=== PATIENT | female | born 1995 | race Two or more races ===

== ENCOUNTER 2016-06-29 12:43 | Emergency (ER) | payer MEDICAID, OTHER ==
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
[2016-06-29 13:18] VITALS: BP 133/82
--- NOTE | 2016-06-29 15:05 | ER Document Report ---
ED General - General Chief Complaint: Headache Stated Complaint: VISION PROBLEM Information source: Patient, Friend Notes: This 20-year-old female just recently moved to the area who presents today stating she's had some blurring vision when she tries to read tingling in hands and feet face around her lips occasionally she feels a sense of impending doom. She states that up until a proximally 5 days ago she had been taking many illicit drugs most notably ecstasy Valium sleeping pills and muscle relaxers. She states that she did come here to get herself cleaned up states she has no chest pain or shortness of breath no exertional chest pain no exertional shortness of breath no diaphoresis no nausea no vomiting TRAVEL OUTSIDE OF THE [place] IN LAST 30 DAYS: No - Related Data Allergies/Adverse Reactions: No Known Allergies Allergy (Verified 06/29/16 13:15) Past Medical History - General Last Menstrual Period: 05/2016 - Social History Smoking Status: Current Every Day Smoker Cigarette use (# per day): Yes Chew tobacco use (# tins/day): No Frequency of alcohol use: None Drug Abuse: Marijuana Family History: Reviewed & Not Pertinent Patient has suicidal ideation: No Patient has homicidal ideation: No Neurological Medical History: Reports: Hx Migraine Renal/ Medical History: Denies: Hx Peritoneal Dialysis Past Surgical History: Reports: Hx Oral Surgery - wisdom teeth, Hx Orthopedic Surgery - Immunizations Hx Diphtheria, Pertussis, Tetanus Vaccination: Yes Review of Systems - Review of Systems Constitutional: No symptoms reported EENT: No symptoms reported Cardiovascular: No symptoms reported Respiratory: No symptoms reported Gastrointestinal: No symptoms reported Genitourinary: No symptoms reported Female Genitourinary: No symptoms reported Musculoskeletal: No symptoms reported Skin: No symptoms reported Hematologic/Lymphatic: No symptoms reported Neurological/Psychological: No symptoms reported Physical Exam - Vital signs Vitals: Temp Pulse Resp BP Pulse Ox 98.9 F 93 16 133/82 H 99 06/29/16 13:07 06/29/16 13:07 06/29/16 13:07 06/29/16 13:07 06/29/16 13:07 Interpretation: Normal - General General appearance: Appears well, Alert - HEENT Head: Normocephalic, Atraumatic Eyes: Normal Pupils: PERRL Visual acuity- Right eye: 20/20 Visual acuity- Left eye: 20/25 Visual acuity- Both eyes: 20/25 Corrective lenses worn: Yes - Respiratory Respiratory status: No respiratory distress Chest status: Nontender Breath sounds: Normal Chest palpation: Normal - Cardiovascular Rhythm: Regular Heart sounds: Normal auscultation Murmur: No - Abdominal Inspection: Normal Distension: No distension Bowel sounds: Normal Tenderness: Nontender Organomegaly: No organomegaly - Back Back: Normal, Nontender - Extremities General upper extremity: Normal inspection, Nontender, Normal color, Normal ROM , Normal temperature General lower extremity: Normal inspection, Nontender, Normal color, Normal ROM , Normal temperature, Normal weight bearing. No: Jc's sign - Neurological Neuro grossly intact: Yes Cognition: Normal Orientation: AAOx4 Marv Coma Scale Eye Opening: Spontaneous Marv Coma Scale Verbal: Oriented Marv Coma Scale Motor: Obeys Commands Marv Coma Scale Total: 15 Speech: Normal Motor strength normal: LUE, RUE, LLE, RLE Sensory: Normal - Psychological Associated symptoms: Normal affect, Normal mood - Skin Skin Temperature: Warm Skin Moisture: Dry Skin Color: Normal Course - Vital Signs Vital signs: Temp Pulse Resp BP Pulse Ox 98.9 F 93 16 133/82 H 99 06/29/16 13:07 06/29/16 13:07 06/29/16 13:07 06/29/16 13:07 06/29/16 13:07 - Transfer of Care Notes: 06/29/16 15:01 Patient was evaluated by me and an order was placed for visual acuities vital signs stable 133/8216 respirations and a percent saturation pulse of 93 temperature of 98.9 patient eloped prior to having the visual acuities done however her care has been provided here in the department. Discharge - Discharge Clinical Impression: Substance abuse Disposition: HOME, SELF-CARE Additional Instructions: CHRONIC ALCOHOLISM and ALCOHOL ABUSE: Your evaluation reveals evidence of chronic alcoholism, an addiction to alcohol. The tendency to alcoholism may be inherited. Chronic use of alcohol weakens muscles, causes fatty deposits in the liver , damages the stomach, makes you more prone to infections, and can cause defects in unborn children. In the long run, brain atrophy and cirrhosis of the liver result. You are also at greater risk for certain types of cancer, such as cancer of the mouth, throat, stomach, and liver. Counselling services are available to help you. In-hospital treatment programs often help. Support groups such as Alcoholics Anonymous can be very useful in beating this addiction. Your physician can make a referral for you. As alcoholics often are prone to other addictions, you should discuss your use of any other medications with the doctor. ALCOHOL WITHDRAWAL: Your symptoms are caused by alcohol withdrawal. After a period of frequent drinking, the brain and body are changed by the alcohol. When you quit or reduce your drinking, the nervous system becomes unstable. Withdrawal symptoms can start a few hours after your last drink, but sometimes don't begin until a couple of days later. Symptoms can include shakiness, sweating, insomnia, nausea , vomiting, fearfulness, hallucinations, and seizures. In addition to the acute effects of alcohol withdrawal, we often have to deal with the medical effects of alcoholism. These problems often include dehydration, stomach irritation, intestinal bleeding, low blood sugar, liver disease, and pancreas inflammation. Treatment for alcohol withdrawal includes mild sedatives, vitamins, and fluids. You need to be with someone who can help if symptoms become severe. Many patients can withdraw at home. Admission to the hospital or a detox facility may be necessary if withdrawal symptoms are severe and uncontrollable. Abstaining from alcohol is the only effective long-term treatment. If you start drinking again, you will not be able to control yourself after the first drink. Treatment programs are available. In addition, many alcoholics benefit from Alcoholics Anonymous or other support groups available through your counselor or confucianism excellence consultant. [facility] and ALA-TE[facility] are support groups for friends and family members of an alcoholic. Go to the emergency room if you develop persistent vomiting, severe abdominal pain, fever, shortness of breath, hallucinations, uncontrollable tremors, or seizures. NARCOTIC / OPIOD ABUSE: Narcotics and opiods are pain-relieving drugs that are often abused. They are addicting. Narcotics cause euphoria, but it often takes increasing amounts to "feel good" and avoid withdrawal symptoms. Overdose of narcotics causes small pupils, coma, and decreased breathing. It's a common cause of . Purity of street narcotics is unpredictable. Injection of narcotics is risky for abscesses, endocarditis (heart infection), pneumonia, and AIDS. Withdrawal from narcotics causes goose bumps, watery mouth, sweating, nasal congestion, muscle aches, abdominal cramps, vomiting, and diarrhea. There 's often restlessness and confusion. Treatment programs are available, but you must make the decision to quit. Medication (such as clonidine) can be prescribed to control the symptoms of withdrawal. AMPHETAMINE / METHAMPHETAMINE ABUSE: Amphetamines are addicting stimulants. Amphetamines overstimulate the nervous system and give a false feeling of power and mastery. These drugs may be obtained as prescription pills for weight loss, narcolepsy, or attention- deficit disorder. More often they're bought as an illegal street drug, methamphetamine (crank, crystal, speed). Using amphetamines repeatedly can lead to serious medical problems including malnutrition, severe depression, and paranoia. It can take increasing amounts to feel good. Eventually, there will be a "burn out." When you go off amphetamines there is a period of depression that may last for weeks or even months. High doses of amphetamines can cause seizures, confusion, hallucinations, delusions, high blood pressure, muscle damage, heart damage, or sudden . Many times these deadly complications occur even with "normal" doses. Injection of amphetamines is risky for developing abscesses, endocarditis ( heart infection), pneumonia, and AIDS. Withdrawal from amphetamines often causes anxiety, depression, and drug cravings. Some users become paranoid and psychotic. There may be cramps, nausea , and vomiting. Many treatment programs are available, but you must make the decision to quit. Medication can be prescribed to control the symptoms of amphetamine toxicity (beta blockers or benzodiazepines). Withdrawal symptoms may require tranquilizers. FOR THE OBSERVER: Observe the patient for the next 24 hours and call or go to the hospital if any of the following are noted: prolonged or repeated vomiting, difficulty in arousing, convulsions (seizures or fits), fever, persistent cough, breathing that is too slow or too rapid, or confused or bizarre behavior. If a counselling visit has been arranged, make sure the patient attends. Call the physician or poison control if you have questions. FOLLOW-UP CARE: If you have been referred to a physician for follow-up care, call the physician s office for an appointment as you were instructed or within the next two days. If you experience worsening or a significant change in your symptoms, notify the physician immediately or return to the Emergency Department at any time for re-evaluation.
== END 2016-06-29 15:03 | disposition left against medical advice (07) ==
LOC: ER 12:43
DX: F19.10 Other psychoactive substance abuse, uncomplicated (principal); R51 Headache; F17.210 Nicotine dependence, cigarettes, uncomplicated; H53.8 Other visual disturbances
CPT/HCPCS: 99281

== ENCOUNTER 2017-07-01 23:08 | Emergency (ER) | payer SELFPAY ==
[2017-07-01 23:46] LABS: ABSOLUTE EOSINOPHILS # (AUTO) 0.2 10^3/uL (0.0-0.6); ABSOLUTE MONOCYTES (AUTO) 0.5 10^3/uL (0.1-1.4); ABSOLUTE NEUT (AUTO) 5.4 10^3/uL (1.7-8.2); BASOPHILS % (AUTO) 0.5 % (0-2); EOSINOPHILS % (AUTO) 2.2 % (0-6); HEMATOCRIT 45.1 % (36.0-47.0); HEMOGLOBIN 15.4 g/dL (12.0-15.5); LYMPHOCYTES % (AUTO) 33.1 % (13-45); MEAN CORPUSCULAR HEMOGLOBIN 30.5 pg (27.0-33.4); MEAN CORPUSCULAR HGB CONC 34.2 g/dL (32.0-36.0); MEAN CORPUSCULAR VOLUME 89 fl (80-97); MONOCYTES % (AUTO) 5.2 % (3-13); PLATELET COUNT 272 10^3/uL (150-450); RED BLOOD COUNT 5.05 10^6/uL (3.72-5.28); RED CELL DISTRIBUTION WIDTH 12.6 % (11.5-14.0); TOTAL CELLS COUNTED % (AUTO) 100 %; WHITE BLOOD COUNT 9.1 10^3/uL (4.0-10.5)
[2017-07-02 00:01] LABS: ALANINE AMINOTRANSFERASE 36 U/L (9-52); ALKALINE PHOSPHATASE 73 U/L (38-126); ANION GAP 13 (5-19); ASPARTATE AMINO TRANSFERASE 23 U/L (14-36); BILIRUBIN,DIRECT 0.1 mg/dL (0.0-0.4); BILIRUBIN,TOTAL 0.6 mg/dL (0.2-1.3); BLOOD UREA NITROGEN 8 mg/dL (7-20); CARBON DIOXIDE 23 mmol/L (22-30); CHLORIDE 108 mmol/L (98-107); GLUCOSE 95 mg/dL (75-110); POTASSIUM 4.1 mmol/L (3.6-5.0); SODIUM 144.1 mmol/L (137-145); TOTAL PROTEIN 7.8 g/dL (6.3-8.2)
[2017-07-02 00:11] LABS: ACETAMINOPHEN < 10 ug/mL (10-30); ALCOHOL < 10 mg/dL (NONE DETECTED); SALICYLATE < 1.0 mg/dL (2.0-20.0)
--- NOTE | 2017-07-02 01:35 | ER Document Report ---
ED Psych Disorder / Suicide - General Mode of Arrival: Ambulatory Information source: Patient TRAVEL OUTSIDE OF THE [place] IN LAST 30 DAYS: No <GEOVANNY CARTWRIGHT - Last Filed: 07/02/17 03:09> <SOFÍA TRUONG - Last Filed: 07/02/17 05:36> - General Chief Complaint: Suicidal Ideation Stated Complaint: SUICIDAL ATTEMPT Time Seen by Provider: 07/01/17 23:31 Notes: Patient is a 21 year old female that presents to the emergency department today with complaints of suicidal ideation. Patient is very uncooperative with exam so history is limited. When asked what is wrong, the patient states "just stuff ". Patient states she cut her left arm today in an attempt to kill herself. Patient has 3 very superficial lacerations over her left forearm. (GEOVANNY CARTWRIGHT ) - Related Data Allergies/Adverse Reactions: No Known Allergies Allergy (Verified 08/08/16 07:43) Past Medical History - General Information source: Patient - Social History Smoking Status: Never Smoker Cigarette use (# per day): No Frequency of alcohol use: Social Drug Abuse: Cocaine, Marijuana, Prescription drugs Lives with: Family Family History: Reviewed & Not Pertinent, DM, Other - Gallbladder disease Patient has suicidal ideation: Yes Patient has homicidal ideation: No Neurological Medical History: Reports: Hx Migraine Psychiatric Medical History: Reports: Hx Anxiety, Hx Depression, Hx Post Traumatic Stress Disorder Past Surgical History: Reports: Hx Cholecystectomy, Hx Oral Surgery - wisdom teeth, Hx Orthopedic Surgery - Immunizations Immunizations up to date: Yes Hx Diphtheria, Pertussis, Tetanus Vaccination: Yes <GEOVANNY CARTWRIGHT - Last Filed: 07/02/17 03:09> Review of Systems - Review of Systems Constitutional: No symptoms reported EENT: No symptoms reported Cardiovascular: No symptoms reported Respiratory: No symptoms reported Gastrointestinal: No symptoms reported Genitourinary: No symptoms reported Female Genitourinary: No symptoms reported Musculoskeletal: No symptoms reported Skin: No symptoms reported Hematologic/Lymphatic: No symptoms reported Neurological/Psychological: See HPI, Suicidal ideation -: Yes All other systems reviewed and negative <GEOVANNY CARTWRIGHT - Last Filed: 07/02/17 03:09> Physical Exam <GEOVANNY CARTWRIGHT - Last Filed: 07/02/17 03:09> <SOFÍA TRUONG - Last Filed: 07/02/17 05:36> - Vital signs Vitals: Temp Pulse Resp BP Pulse Ox 98.5 F 67 16 140/101 H 97 07/01/17 23:28 07/01/17 23:28 07/01/17 23:28 07/01/17 23:28 07/01/17 23:28 - Notes Notes: Physical Exam: General: Alert, uncooperative. HEENT: Normocephalic. Atraumatic. PERRL. Extraocular movements intact. Oropharynx clear. Neck: Supple. Non-tender. Respiratory: No respiratory distress. Clear and equal breath sounds bilaterally. Cardiovascular: Regular rate and rhythm. Abdominal: Normal Inspection. Non-tender. No distension. Normal Bowel Sounds. Back: Non-tender. No deformity or step off. Extremities: Moves all four extremities. Upper extremities: Normal inspection. Normal ROM. Lower extremities: Normal inspection. No edema. Normal ROM. Neurological: Normal cognition. AAOx4. Normal speech. Psychological: Flat affect. Tearful. Skin: Superficial lacerations over left arm, bleeding controlled. (GEOVANNY CARTWRIGHT ) Course - Laboratory Result Diagrams: 07/01/17 23:34 07/01/17 23:34 <GEOVANNY CARTWRIGHT - Last Filed: 07/02/17 03:09> - Laboratory Result Diagrams: 07/01/17 23:34 07/01/17 23:34 <SOFÍA TRUONG - Last Filed: 07/02/17 05:36> - Re-evaluation Re-evalutation: 07/02/17 Patient is a 21-year-old female who presents with suicidal ideation and self- inflicted lacerations to her left forearm. Patient was initially tearful and fairly uncooperative with history. Medically she is stable and will be held for mental health evaluation due to her suicidal ideation. (SOFÍA TRUONG) - Vital Signs Vital signs: Temp Pulse Resp BP Pulse Ox 97.7 F 76 16 105/69 100 07/02/17 03:00 07/02/17 03:00 07/02/17 03:00 07/02/17 03:00 07/02/17 03:00 - Laboratory Laboratory results interpreted by me: 07/01/17 23:34 Chloride 108 H Salicylates < 1.0 L Acetaminophen < 10 L Discharge <GEOVANNY CARTWRIGHT - Last Filed: 07/02/17 03:09> <SOFÍA TRUONG - Last Filed: 07/02/17 05:36> - Discharge Clinical Impression: Suicidal ideation Condition: Stable Disposition: OTHER Scribe Attestation: 07/02/17 05:35 I personally performed the services described in the documentation, reviewed and edited the documentation which was dictated to the scribe in my presence, and it accurately records my words and actions. (SOFÍA TRUONG) Scribe Documentation - Scribe Written by Scribe:: Harrison Hernández, 07/02/2017 [id number] acting as scribe for :: Florentin <GEOVANNY CARTWRIGHT - Last Filed: 07/02/17 03:09>
[2017-07-02 07:51] LABS: APPEARANCE,URINE SLIGHTLY-CLOUDY; BILIRUBIN,URINE NEGATIVE (NEGATIVE); COLOR,URINE YELLOW; GLUCOSE, URINE NEGATIVE (NEGATIVE); KETONES,URINE NEGATIVE (NEGATIVE); LEUKOCYTE ESTERASE,URINE NEGATIVE (NEGATIVE); NITRITE,URINE NEGATIVE (NEGATIVE); PROTEIN,URINE 30 mg/dL (NEGATIVE); URINE SPECIFIC GRAVITY 1.028; UROBILINOGEN,URINE NEGATIVE mg/dL (<2.0)
--- NOTE | 2017-07-02 08:04 | EKG REPORT ---
SEVERITY:- NORMAL ECG - SINUS RHYTHM : Confirmed by: Min Avalos MD 02-Jul-2017 08:03:53
[2017-07-02 08:08] LABS: URINE AMPHETAMINES SCREEN NEGATIVE; URINE BARBITURATES SCREEN NEGATIVE; URINE BENZODIAZEPINES SCREEN NEGATIVE; URINE COCAINE SCREEN NEGATIVE; URINE MARIJUANA (THC) SCREEN UNCONFIRMED POSITIVE; URINE METHADONE SCREEN NEGATIVE; URINE PHENCYCLIDINE SCREEN NEGATIVE
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
[2017-07-02 11:00] VITALS: BP 114/63
== END 2017-07-02 12:14 | disposition other institution (70) ==
LOC: ER 23:08
DX: R45.851 Suicidal ideations (principal); S51.812A Laceration without foreign body of left forearm, initial encounter; X78.9XXA Intentional self-harm by unspecified sharp object, initial encounter
CPT/HCPCS: 36415; 80053; 80307; 81001; 84703; 85025; 93005; 93010; 99285

== ENCOUNTER 2017-12-16 22:26 | Emergency (ER) | payer SELFPAY ==
[2017-12-16] MEDS ORDERED: ONDANSETRON 4 MG TAB.RAPDIS PO ONE (23:27)
[2017-12-17 00:01] LABS: ABSOLUTE EOSINOPHILS # (AUTO) 0.1 10^3/uL (0.0-0.6); ABSOLUTE LYMPHOCYTES (AUTO) 3.3 10^3/uL (0.5-4.7); ABSOLUTE MONOCYTES (AUTO) 0.6 10^3/uL (0.1-1.4); BASOPHILS % (AUTO) 0.4 % (0-2); EOSINOPHILS % (AUTO) 0.7 % (0-6); HEMATOCRIT 39.4 % (36.0-47.0); HEMOGLOBIN 13.9 g/dL (12.0-15.5); MEAN CORPUSCULAR HGB CONC 35.2 g/dL (32.0-36.0); MEAN CORPUSCULAR VOLUME 91 fl (80-97); MONOCYTES % (AUTO) 5.6 % (3-13); PLATELET COUNT 278 10^3/uL (150-450); RED BLOOD COUNT 4.33 10^6/uL (3.72-5.28); RED CELL DISTRIBUTION WIDTH 12.4 % (11.5-14.0); SEGMENTED NEUTROPHILS % (AUTO) 63.3 % (42-78); TOTAL CELLS COUNTED % (AUTO) 100 %
[2017-12-17 00:05] LABS: APPEARANCE,URINE SLIGHTLY-CLOUDY; BILIRUBIN,URINE NEGATIVE (NEGATIVE); COLOR,URINE YELLOW; GLUCOSE, URINE NEGATIVE (NEGATIVE); KETONES,URINE TRACE mg/dL (NEGATIVE); LEUKOCYTE ESTERASE,URINE TRACE (NEGATIVE); NITRITE,URINE NEGATIVE (NEGATIVE); PROTEIN,URINE NEGATIVE (NEGATIVE); URINE SPECIFIC GRAVITY 1.024
[2017-12-17 00:14] LABS: ALANINE AMINOTRANSFERASE 25 U/L (9-52); ALBUMIN 4.5 g/dL (3.5-5.0); ALKALINE PHOSPHATASE 70 U/L (38-126); ANION GAP 14 (5-19); ASPARTATE AMINO TRANSFERASE 22 U/L (14-36); BILIRUBIN,DIRECT 0.2 mg/dL (0.0-0.4); BILIRUBIN,TOTAL 1.4 mg/dL (0.2-1.3); BLOOD UREA NITROGEN 9 mg/dL (7-20); CALCIUM 9.7 mg/dL (8.4-10.2); CARBON DIOXIDE 24 mmol/L (22-30); CHLORIDE 105 mmol/L (98-107); GLUCOSE 86 mg/dL (75-110); LIPASE 87.4 U/L (23-300); POTASSIUM 4.3 mmol/L (3.6-5.0); SODIUM 142.6 mmol/L (137-145); TOTAL PROTEIN 7.4 g/dL (6.3-8.2)
[2017-12-17] MEDS ORDERED: CEFTRIAXONE INJ 250 MG VIAL IM ONE (01:42)
[2017-12-17] MEDS ORDERED: LIDOCAINE 1% INJ-PF (10 MG/ML) 30 ML SDV INJ ONE (01:42)
[2017-12-17] MEDS ORDERED: DOXYCYCLINE HYCLATE 100 MG TABLET PO ONE (01:50)
[2017-12-17 01:52] LABS: BACTERIA (WET MOUNT) 4+ BACTERIA SEEN; EPITHELIALS (WET MOUNT) 3+ EPITHELIALS SEEN; RBCS (WET MOUNT) RARE RBCS SEEN; T.VAGINALIS (WET MOUNT) NO TRICHOMONAS SEEN; WBCS (WET MOUNT) 2+ WBCS SEEN; YEAST (WET MOUNT) NO YEAST SEEN
--- NOTE | 2017-12-17 01:55 | ER Document Report ---
ED GI/ - General Chief Complaint: Abdominal Pain Stated Complaint: POSSIBLE ALLERGIC REACTION Time Seen by Provider: 12/17/17 00:48 Mode of Arrival: Ambulatory Information source: Patient Notes: 22-year-old female presented to ED for complaint of abdominal pain nausea and vomiting. She states she had lower abdominal pain and cramping and pain in her back for the last couple days. She states her boyfriend was seen at the health department and told he had a STD and that she needed to come into the health department and be treated. She went to the health department and they gave her 2 blue pills and sent her home. She states when she got home she had vomiting and does not think she kept any of the pills down. She states they did not test her at the health department. She states she does not have the pain in her back anymore but she has cramping and nausea. She has received Zofran and blood test and urine were received before I examined the patient. The urine was not sent for GC and chlamydia. I will do swabs for GC and chlamydia and wet mount her for PID. TRAVEL OUTSIDE OF THE [place] IN LAST 30 DAYS: No - HPI Patient complains to provider of: Pelvic pain, Vaginal discharge Onset: Other - Several days Timing/Duration: Intermittent Quality of pain: Cramping Severity at maximum: Severe Severity in ED: Moderate Pain Level: 3 Location: Pelvis Vaginal bleeding (Compared to normal period): None Sexual history: Unprotected intercourse, STD exposure Associated symptoms: Vaginal discharge, Other - Pelvic pain Exacerbated by: Denies Relieved by: Denies Similar symptoms previously: Yes Recently seen / treated by doctor: Yes - Related Data Allergies/Adverse Reactions: No Known Allergies Allergy (Verified 08/08/16 07:43) Past Medical History - General Information source: Patient - Social History Smoking Status: Never Smoker Cigarette use (# per day): No Chew tobacco use (# tins/day): No Smoking Education Provided: No Frequency of alcohol use: Occasional Drug Abuse: Marijuana Lives with: Spouse/Significant other Family History: Reviewed & Not Pertinent, DM, Other - Gallbladder disease Patient has suicidal ideation: No Patient has homicidal ideation: No - Past Medical History Cardiac Medical History: Reports: None Pulmonary Medical History: Reports: None EENT Medical History: Reports: None Neurological Medical History: Reports: Hx Migraine Endocrine Medical History: Reports: None Renal/ Medical History: Reports: Hx Pelvic Inflammatory Disease Malignancy Medical History: Reports: None GI Medical History: Reports: None Musculoskeletal Medical History: Reports None Skin Medical History: Reports None Psychiatric Medical History: Reports: Hx Anxiety, Hx Depression, Hx Post Traumatic Stress Disorder Traumatic Medical History: Reports: None Infectious Medical History: Reports: None Past Surgical History: Reports: Hx Cholecystectomy, Hx Oral Surgery - wisdom teeth, Hx Orthopedic Surgery - Immunizations Immunizations up to date: Yes Hx Diphtheria, Pertussis, Tetanus Vaccination: Yes Review of Systems - Review of Systems Constitutional: No symptoms reported EENT: No symptoms reported Cardiovascular: No symptoms reported Respiratory: No symptoms reported Gastrointestinal: No symptoms reported Genitourinary: No symptoms reported Female Genitourinary: Vaginal discharge, Vaginal odor, Other - pelvic pain Musculoskeletal: No symptoms reported Skin: No symptoms reported Hematologic/Lymphatic: No symptoms reported Neurological/Psychological: No symptoms reported -: Yes All other systems reviewed and negative Physical Exam - Vital signs Vitals: Temp Pulse BP Pulse Ox 98.3 F 66 132/79 H 99 12/16/17 22:39 12/16/17 22:39 12/16/17 22:39 12/16/17 22:39 Interpretation: Normal - General General appearance: Appears well, Alert - HEENT Head: Normocephalic, Atraumatic Eyes: Normal Pupils: PERRL - Respiratory Respiratory status: No respiratory distress Chest status: Nontender Breath sounds: Normal Chest palpation: Normal - Cardiovascular Rhythm: Regular Heart sounds: Normal auscultation Murmur: No - Abdominal Inspection: Normal Distension: No distension Bowel sounds: Normal Tenderness: Tender - pelvic area Organomegaly: No organomegaly - Genitourinary External exam: Normal Notes: self swab for GC and chlamydia and wet mount completed. - Back Back: Normal, Nontender - Extremities General upper extremity: Normal inspection, Nontender, Normal color, Normal ROM , Normal temperature General lower extremity: Normal inspection, Nontender, Normal color, Normal ROM , Normal temperature, Normal weight bearing. No: Jc's sign - Neurological Neuro grossly intact: Yes Cognition: Normal Orientation: AAOx4 Marv Coma Scale Eye Opening: Spontaneous Marv Coma Scale Verbal: Oriented Marv Coma Scale Motor: Obeys Commands Marv Coma Scale Total: 15 Speech: Normal Motor strength normal: LUE, RUE, LLE, RLE Sensory: Normal - Psychological Associated symptoms: Normal affect, Normal mood - Skin Skin Temperature: Warm Skin Moisture: Dry Skin Color: Normal Course - Re-evaluation Re-evalutation: 12/17/17 02:30 Patient treated with Zofran, Rocephin, and doxycycline in the emergency room for her sinus symptoms of twice daily and her positive bacterial vaginosis test. She was instructed to call tomorrow for the results of her GC and chlamydia. Patient has been treated and instructed no sexual intercourse for at least 7 days. Patient verbalized understanding of instructions and agreement with treatment plan. - Vital Signs Vital signs: Temp Pulse Resp BP Pulse Ox 98.2 F 68 16 118/76 100 12/17/17 02:25 12/17/17 02:25 12/17/17 02:25 12/17/17 02:25 12/17/17 02:25 - Laboratory Result Diagrams: 12/16/17 23:40 12/16/17 23:40 Laboratory results interpreted by me: 12/16/17 12/16/17 12/16/17 23:40 23:40 23:40 WBC 11.0 H Total Bilirubin 1.4 H Urine Ketones TRACE H Urine Urobilinogen 4.0 H Ur Leukocyte Esterase TRACE H Discharge - Discharge Clinical Impression: Pelvic pain, PID (acute pelvic inflammatory disease), Bacterial vaginosis Condition: Stable Disposition: HOME, SELF-CARE Instructions: Family Physicians / Practices, [facility] Additional Instructions: PELVIC PAIN: There are many causes of pain in the pelvic area. The cause could be the tubes, ovaries, uterus, intestines, appendix, pelvic muscles and connective tissue, or the urinary tract. The cause of your pelvic pain is not clear. However, it seems safe to treat you outside the hospital. If the pain sounds like a temporary problem, we sometimes wait to see if it goes away. Other patients may need additional tests, such as pelvic ultrasound or cultures. Conditions may change. Call us or come back for reexamination if any problems occur, such as: (1) Pain that becomes more severe, steady, or becomes concentrated in one specific area. Also, pain that is more severe with movement or coughing. (2) Vomiting that persists or becomes more frequent. (3) Blood in the vomitus, urine, or bowel movements. Blood in the stool may have a tarry or black appearance. (4) Shaking chills or fever greater than 100 degrees. (5) The abdomen becomes more distended or swollen. (6) Bowel movements cease. (7) Heavy vaginal bleeding. PELVIC INFLAMMATORY DISEASE: You have been diagnosed as having pelvic inflammatory disease (PID). This is an infection of the fallopian tubes and surrounding areas of the pelvis. Symptoms are usually pelvic pain and discharge. The infection can do permanent damage to the tubes and ovaries. It should be taken very seriously. Treatment is antibiotics, which may be given by vein or by injection if the infection seems serious. It's important that you receive all recommended medication. Condoms help prevent spread of this infection to others. Because this infection is spread sexually, it's important that your sexual partner be checked before resuming sexual relations. If a culture shows gonorrhea or chlamydia organisms, the law requires that this be reported to the health department. Call the doctor or return at once if you develop increasing fever, rash, severe pelvic pain, vaginal bleeding (other than your period), or problems with your bladder or bowels. VAGINOSIS, BACTERIAL: Your exam shows you have bacterial vaginosis. This condition is due to an overgrowth of bacteria in the vagina. Symptoms may include vaginal itching or pain, a smelly discharge, and sometimes burning with urination. Normally this is not transmitted by sexual contact. Vaginosis can be treated with oral or topical antibiotics. Metronidazole ( Flagyl) pills are usually effective. Topical vaginal creams include Cleocin and Metro-Gel. You should avoid sexual contact until your symptoms are all better. Call the doctor if you develop pelvic pain, fever, or problems with urination, or if you don't improve as expected. CEPHALOSPORINS: An antibiotic of the cephalosporin class has been prescribed. This type of antibiotic covers a wide variety of infections, including those of the skin, lungs, middle ear, and urinary tract. This antibiotic is somewhat similar to the penicillin family. In rare cases , a person who is allergic to penicillin will also be allergic to this medication. If you have had a severe allergic reaction to penicillin, and have not taken this antibiotic since that time, notify your doctor. Antibiotics which cover many germs ("broad spectrum" antibiotics) are more likely to cause diarrhea or "yeast" infections. Women prone to vaginal yeast problems may suffer an attack after taking this antibiotic. In infants, oral thrush (white spots "stuck" on the cheek) or yeast diaper rash may result. See your doctor if these problems occur. Call the doctor at once if you develop hives, itching, shortness of breath , or lightheadedness. DOXYCYCLINE: Doxycycline (Vibramycin, Doryx) is an antibiotic of the tetracycline family. This type of drug is useful for infections of the respiratory tract and genital tract, and is sometimes used for intestinal infections. Unlike most tetracyclines, doxycycline can be taken with food. It is longer acting, and (usually) less prone to side effects than regular tetracycline. Tetracycline antibiotics can stain immature teeth and SHOULD NOT BE TAKEN BY CHILDREN, NURSING MOTHERS, OR WOMEN. Tetracyclines can make you more prone to sunburn. Abdominal cramping, nausea, and diarrhea are occasional side effects. Women may experience vaginal yeast infections. Call the doctor at once if you develop hives, itching, shortness of breath , or lightheadedness. METRONIDAZOLE: Metronidazole (Flagyl) has been prescribed. This medication is used to kill a type of bacteria called anaerobes, and protozoan parasites such as trichomonas and Giardia. Flagyl often causes a metallic taste in the mouth and mild nausea. Do not use alcohol in any form with Flagyl (including alcohol in medication elixirs). Flagyl interacts with alcohol to cause flushing, palpitations, headache, stomach cramps, and vomiting. Do not use Flagyl if you are taking Antabuse (disulfiram). Call the doctor at once if you develop rash, shortness of breath, itching, or lightheadedness. Antinausea Medication You have been given a medication to suppress nausea and vomiting. This type of medication can be given as a shot, pill, or suppository. It will usually last for many hours. Pills and shots usually last six to eight hours, suppositories last about 12 hours. For the typical illness, only one or two doses of the medication may be necessary. Mild lightheadedness may occur. This type of medicine can cause drowsiness. Do not drive or operate dangerous machinery while under its influence. Do not mix with alcohol. See your doctor at once if you have muscle spasms or tightness, or uncontrollable motions (particularly of the neck, mouth, or jaw). Persistent vomiting or severe lightheadedness should also be evaluated by the physician. FOLLOW-UP CARE: If you have been referred to a physician for follow-up care, call the physician s office for an appointment as you were instructed or within the next two days. If you experience worsening or a significant change in your symptoms, notify the physician immediately or return to the Emergency Department at any time for re-evaluation. Prescriptions: Ondansetron [Zofran Odt 4 mg Tablet] 4 mg PO Q6HP PRN #10 tab.rapdis PRN Reason: Doxycycline Hyclate 100 mg PO BID #28 tablet Metronidazole [Flagyl 500 mg Tablet] 500 mg PO BID #14 tablet Forms: Elevated Blood Pressure, Parent Work Note, Return to Work
[2017-12-17 02:27] VITALS: BP 118/76
[2017-12-17 03:15] LABS: CHLAM PCR DETECTED (NOT DETECT); GON PCR NOT DETECTED (NOT DETECT)
== END 2017-12-17 02:30 | disposition home or self-care (01) ==
LOC: ER 22:26
DX: N76.0 Acute vaginitis (principal); B96.89 Other specified bacterial agents as the cause of diseases classified elsewhere; N73.0 Acute parametritis and pelvic cellulitis; R10.2 Pelvic and perineal pain; R11.2 Nausea with vomiting, unspecified; R09.89 Other specified symptoms and signs involving the circulatory and respiratory systems; Z90.49 Acquired absence of other specified parts of digestive tract
CPT/HCPCS: 99284; 96372; 36415; 87210; 83690; 84703; 85025; 80053; 81001; 87491; 87591; S0119; J3490; J0696

== ENCOUNTER 2017-12-20 16:16 | Emergency (ER) | payer SELFPAY ==
[2017-12-20] MEDS ORDERED: ONDANSETRON 4 MG TAB.RAPDIS PO ONE (18:06)
--- NOTE | 2017-12-20 18:06 | ER Document Report ---
ED GI/ - General Chief Complaint: Nausea/Vomiting/Diarrhea Stated Complaint: VOMITING,DIARRHEA,FEVER Time Seen by Provider: 12/20/17 17:51 Mode of Arrival: Ambulatory Information source: Patient Notes: Patient is a 22-year-old female who was seen here just a few days ago, coming in for the same symptoms of vaginal discharge, abdominal cramping, nausea, vomiting and watery diarrhea. Patient states she feels like she has had fever and chills at home but has not taken her temperature. Patient states she has had no appetite. Patient was treated for chlamydia with Rocephin and azithromycin. Patient did not take her Flagyl or doxycycline that she was prescribed for bacterial vaginosis and possible PID, she did not even get the medications filled. Patient states that her discharge has not stopped. She denies the abdominal pain is any worse than when she was seen before. TRAVEL OUTSIDE OF THE [place] IN LAST 30 DAYS: No - Related Data Allergies/Adverse Reactions: No Known Allergies Allergy (Verified 12/20/17 16:19) Past Medical History - General Information source: Patient - Social History Smoking Status: Unknown if Ever Smoked Family History: Reviewed & Not Pertinent, DM, Other - Gallbladder disease Patient has suicidal ideation: No Patient has homicidal ideation: No Neurological Medical History: Reports: Hx Migraine Renal/ Medical History: Reports: Hx Pelvic Inflammatory Disease. Denies: Hx Peritoneal Dialysis Psychiatric Medical History: Reports: Hx Anxiety, Hx Depression, Hx Post Traumatic Stress Disorder Past Surgical History: Reports: Hx Cholecystectomy, Hx Oral Surgery - wisdom teeth, Hx Orthopedic Surgery - Immunizations Immunizations up to date: Yes Hx Diphtheria, Pertussis, Tetanus Vaccination: Yes Review of Systems - Review of Systems Constitutional: No symptoms reported EENT: No symptoms reported Cardiovascular: No symptoms reported Respiratory: No symptoms reported Gastrointestinal: See HPI Genitourinary: No symptoms reported Female Genitourinary: No symptoms reported Musculoskeletal: No symptoms reported Skin: No symptoms reported Hematologic/Lymphatic: No symptoms reported Neurological/Psychological: No symptoms reported Physical Exam - Vital signs Vitals: Temp Pulse Resp BP Pulse Ox 98.8 F 88 18 122/78 100 12/20/17 16:47 12/20/17 16:47 12/20/17 16:47 12/20/17 16:47 12/20/17 16:47 - Notes Notes: PHYSICAL EXAMINATION: GENERAL: Well-appearing and in no acute distress. HEAD: Atraumatic, normocephalic. EYES: Pupils equal round and reactive to light, extraocular movements intact, sclera anicteric, conjunctiva are normal. ENT: ear canals without erythema or foreign body, TMs pearly dodd with good bony landmarks, nares patent, oropharynx clear without exudates. Moist mucous membranes. NECK: Normal range of motion, supple without lymphadenopathy LUNGS: CTAB and equal. No wheezes rales or rhonchi. HEART: Regular rate and rhythm without murmurs ABDOMEN: Soft, no tenderness. No guarding, no rebound BACK: no vertebral tenderness, normal ROM pelvic: declined GI/: no CVA tenderness EXTREMITIES: Normal range of motion, no pitting edema. No cyanosis. NEUROLOGICAL: Cranial nerves grossly intact. Normal sensory/motor exams. PSYCH: Normal mood, normal affect. SKIN: Warm, Dry, normal turgor, no rashes or lesions noted Course - Re-evaluation Re-evalutation: 12/20/17 18:15 Patient did not get her Flagyl or doxycycline filled, I have encouraged her to fill her doxycycline as it is very important to take for possible PID, I will give her a 2 g dose of Flagyl here so that she does not have to purchase the Flagyl prescription. Patient did not vomit the entire time here in the emergency department. Patient was given nausea medication and held down p.o. fluids. - Vital Signs Vital signs: Temp Pulse Resp BP Pulse Ox 98.8 F 88 18 122/78 100 12/20/17 16:47 12/20/17 16:47 12/20/17 16:47 12/20/17 16:47 12/20/17 16:47 Discharge - Discharge Clinical Impression: Pelvic pain, PID (acute pelvic inflammatory disease), Bacterial vaginosis Condition: Stable Disposition: HOME, SELF-CARE Instructions: Pelvic Inflammatory Disease ([facility]), Vaginosis, Bacterial ([facility]) Additional Instructions: Please get the doxycycline filled! This is incredibly important that you take for your pelvic inflammatory disease. If you do not get this filled, your symptoms will not get better. You do not need to get the metronidazole prescription filled any longer, we gave you a high dose of that today that is a one-time dose to replace the prescription. Return immediately for any new or worsening symptoms. Follow up with primary care provider, call tomorrow to make followup appointment. Prescriptions: Promethazine HCl [Phenergan 25 mg Tablet] 1 - 2 tab PO Q6H PRN #15 tablet PRN Reason:
[2017-12-20] MEDS ORDERED: METRONIDAZOLE 500 MG TABLET PO ONE (18:08)
[2017-12-20 18:37] VITALS: BP 133/78
== END 2017-12-20 18:37 | disposition home or self-care (01) ==
LOC: ER 16:16
DX: N73.9 Female pelvic inflammatory disease, unspecified (principal); T36.4X6A Underdosing of tetracyclines, initial encounter; N76.0 Acute vaginitis; B96.89 Other specified bacterial agents as the cause of diseases classified elsewhere; T37.3X6A Underdosing of other antiprotozoal drugs, initial encounter; Z91.128 Patient's intentional underdosing of medication regimen for other reason; Z91.14 Patient's other noncompliance with medication regimen; R10.2 Pelvic and perineal pain; R11.2 Nausea with vomiting, unspecified; R19.7 Diarrhea, unspecified; R63.0 Anorexia
CPT/HCPCS: 99283; S0119

== ENCOUNTER 2017-12-21 07:23 | Emergency (ER) | payer SELFPAY ==
--- NOTE | 2017-12-21 08:17 | ER Document Report ---
ED General - General Chief Complaint: Back Pain Stated Complaint: ABDOMINAL CRAMPING, BACK PAIN Time Seen by Provider: 12/21/17 08:16 Mode of Arrival: Ambulatory Information source: Patient TRAVEL OUTSIDE OF THE [place] IN LAST 30 DAYS: No - HPI Notes: 22 yr old female has been seen in this ER on 12/20/17 and 12/17/17 for complaints of vaginal discharge nausea was evaluated for and treated for chlamydia with Rocephin and azithromycin. Patient states that when she took the azithromycin from the health department, she vomited an hour later, she then returned to the ED for further evaluation, she was then told she had bacterial vaginosis. Patient was given a prescription for doxycycline and was treated while in the ER for tube with 2 g of Flagyl for BV. Patient states that she did go back to the health department and received 1 g of azithromycin to treat for chlamydia, states partner was treated for STDs, states she has been standing for any sexual activity since diagnosis. Today but she reports that she is having some nausea, some loose stool and still having dysuria. His only taken 1 dose of the doxycycline that she was prescribed last night. Patient states she has lower abdominal pain. She also was diagnosed with PID yesterday. Denies fevers , chills, chest pain,palpitations, shortness of breath, dyspnea, hematuria, blurred vision, double vision, loss of vision, speech changes, LH, dizziness, syncope, headaches, wheezing, ST, URI, neck pain, weakness, bowel or bladder dysfunction, saddle anesthesia, numbness or tingling in bilateral upper or lower extremities equally, muscle paralysis, weakness in bilateral upper or lower extremities equally or rash. Denies IV drug use. - Related Data Allergies/Adverse Reactions: No Known Allergies Allergy (Verified 12/21/17 07:24) Past Medical History - General Information source: Patient - Social History Smoking Status: Former Smoker Chew tobacco use (# tins/day): No Frequency of alcohol use: None Drug Abuse: None Family History: Reviewed & Not Pertinent, DM, Other - Gallbladder disease Patient has suicidal ideation: No Patient has homicidal ideation: No Neurological Medical History: Reports: Hx Migraine Renal/ Medical History: Reports: Hx Pelvic Inflammatory Disease. Denies: Hx Peritoneal Dialysis Psychiatric Medical History: Reports: Hx Anxiety, Hx Depression, Hx Post Traumatic Stress Disorder Past Surgical History: Reports: Hx Cholecystectomy, Hx Oral Surgery - wisdom teeth, Hx Orthopedic Surgery - Right foot - Immunizations Immunizations up to date: Yes Hx Diphtheria, Pertussis, Tetanus Vaccination: Yes Review of Systems - Review of Systems Constitutional: No symptoms reported EENT: No symptoms reported Cardiovascular: No symptoms reported Respiratory: No symptoms reported Gastrointestinal: See HPI Genitourinary: See HPI Female Genitourinary: No symptoms reported Musculoskeletal: No symptoms reported Skin: No symptoms reported Hematologic/Lymphatic: No symptoms reported Neurological/Psychological: No symptoms reported Physical Exam - Vital signs Vitals: Temp Pulse Resp BP Pulse Ox 99.5 F 74 14 126/76 H 100 12/21/17 07:26 12/21/17 07:26 12/21/17 07:26 12/21/17 07:12/21/17 07:26 - Notes Notes: PHYSICAL EXAMINATION: GENERAL: Well-appearing, well-nourished and in no acute distress. HEAD: Atraumatic, normocephalic. EYES: Pupils equal round and reactive to light, extraocular movements intact, conjunctiva are normal. ENT: Nares patent, oropharynx clear without exudates. Moist mucous membranes. NECK: Normal range of motion, supple without lymphadenopathy LUNGS: Breath sounds clear to auscultation bilaterally and equal. No wheezes rales or rhonchi. HEART: Regular rate and rhythm without murmurs ABDOMEN: Soft, nontender, nondistended abdomen. No guarding, no rebound. No masses appreciated. no cva tenderness appreciated bilaterally Female : deferred Musculoskeletal: Normal range of motion, no pitting or edema. No cyanosis. NEUROLOGICAL: Cranial nerves grossly intact. Normal speech, normal gait. Normal sensory, motor exams PSYCH: Normal mood, normal affect. SKIN: Warm, Dry, normal turgor, no rashes or lesions noted. Course - Re-evaluation Re-evalutation: 12/21/17 09:31 22-year-old female who is afebrile, vitals stable and in no distress presents to the ED time for lower abdominal cramping, nausea with loose stool. One dose of doxycycline for her outpatient treatment of PID. Will treat patient empirically for PID while she is here with 2 g IV cefoxitin as well as probenecid 1g orally now. Patient does have a UTI with mild dehydration seen on urinalysis materia. Patient given 1 g IV fluid. On clinical examination, patient does not have any flank tenderness, bowel sounds are active, no suprapubic tenderness on palpation, patient states that she did feel back pain yesterday that has resolved. Is not actively vomiting, states she had nausea and was given 8 mg of Zofran ODT. Patient was discharged yesterday with Compazine orally however patient did not feel is because she cannot fill it. This provider discussed with patient, more has a $4 drug list, also the absence she has an [employer] good Rx where you can get coupons for antibiotics and other medications. Patient states she has been abstinent since being diagnosed with chlamydia with her partner. Patient did take 2 g of azithromycin and was treated with 250 mg of Rocephin IM while in ED. Patient is advised to follow- up with [facility], [facility] as well as health department for pelvic exam his Paps and further STD testing. Advised to continue doxycycline orally for UTI since she is Arty purchase a prescription as it covers gram-positive and gram-negative, urine culture sent for sensitivity. Patient advised to eat yogurt daily and to start probiotics to help with loose stool to replenish normal GI augusto. After performing a Medical Screening Examination, I estimate there is LOW risk for ACUTE APPENDICITIS, BOWEL OBSTRUCTION, ACUTE CHOLECYSTITIS, PERFORATED DIVERTICULITIS, INCARCERATED HERNIA, PANCREATITIS, PERFORATED ULCER, ECTOPIC , or TUBO-OVARIAN ABSCESS, thus I consider the discharge disposition reasonable. Also, there is no evidence or peritonitis, sepsis, or toxicity. I have reevaluated this patient multiple times and no significant life threatening changes are noted. The patient and I have discussed the diagnosis and risks, and we agree with discharging home with close follow-up with the understanding that symptoms and presentations can change. We also discussed returning to the Emergency Department immediately if new or worsening symptoms occur. We have discussed the symptoms which are most concerning (e.g., bloody stool, fever, changing or worsening pain, vomiting) that necessitate immediate return. - Vital Signs Vital signs: Temp Pulse Resp BP Pulse Ox 99.5 F 74 14 126/76 H 100 12/21/17 07:26 12/21/17 07:26 12/21/17 07:26 12/21/17 07:26 12/21/17 07:26 - Laboratory Laboratory results interpreted by me: 12/21/17 09:08 Urine Ketones 20 H Urine Urobilinogen 4.0 H Ur Leukocyte Esterase MODERATE H Discharge - Discharge Clinical Impression: Dehydration, Bacterial vaginosis, treatment for PID UTI (urinary tract infection) Qualifiers: Urinary tract infection type: acute cystitis Hematuria presence: without hematuria Qualified Code(s): N30.00 - Acute cystitis without hematuria Condition: Stable Instructions: Dehydration ([facility]), Pelvic Inflammatory Disease ([facility]), Trimethoprim-Sulfa ([facility]), Urinary Tract Infection ([facility]) Additional Instructions: Pelvic Inflammatory Disease You have been diagnosed as having pelvic inflammatory disease (PID). This is an infection of the fallopian tubes and surrounding areas of the pelvis. Symptoms are usually pelvic pain and discharge. The infection can do permanent damage to the tubes and ovaries. It should be taken very seriously. Treatment is antibiotics, which may be given by vein or by injection if the infection seems serious. It's important that you receive all recommended medication. Condoms help prevent spread of this infection to others. Because this infection is spread sexually, it's important that your sexual partner be checked before resuming sexual relations. If a culture shows gonorrhea or chlamydia organisms, the law requires that this be reported to the health department. Call the doctor or return at once if you develop increasing fever, rash, severe pelvic pain, vaginal bleeding (other than your period), or problems with your bladder or bowels. Sexual intercourse as any kind until he has been at least 10 days since treatment and your partner has been evaluated and treated. Always use protective barriers when having sexual intercourse such as condoms, etc. were not tested for HIV, hepatitis C, syphilis and other blood borne pathogens, advised to go to the health department for further serum testing was possibility when being exposed to any STD as well as unprotected sexual intercourse. Prescriptions: Lactobacillus Acidophilus [Probiotic Acidophilus] 1 each PO DAILY #30 tablet Sulfamethoxazole/Trimethoprim [Bactrim Ds Tablet] 1 each PO BID #20 tablet Forms: Return to Work Referrals: TAY MARIA MD [ACTIVE STAFF] - Follow up as needed MARY DUENAS MD [COMMUNITY BASED STAFF] - Follow up as needed
[2017-12-21] MEDS ORDERED: ONDANSETRON 4 MG TAB.RAPDIS PO ONE (09:00)
[2017-12-21 09:43] LABS: AMORPHOUS SEDIMENT,URINE TRACE /HPF; APPEARANCE,URINE SLIGHTLY-CLOUDY; BILIRUBIN,URINE NEGATIVE (NEGATIVE); COLOR,URINE YELLOW; GLUCOSE, URINE NEGATIVE (NEGATIVE); KETONES,URINE 20 mg/dL (NEGATIVE); LEUKOCYTE ESTERASE,URINE MODERATE (NEGATIVE); NITRITE,URINE NEGATIVE (NEGATIVE); PROTEIN,URINE NEGATIVE (NEGATIVE); URINE SPECIFIC GRAVITY 1.024
[2017-12-21] MEDS ORDERED: CEFTRIAXONE INJ 1000 MG VIAL IV ONE (09:46)
[2017-12-21] MEDS ORDERED: NORMAL SALINE 1000 ML 1,000 ML IV PRN (09:46)
[2017-12-21] MEDS ORDERED: PROBENECID 500 MG TABLET PO ONE ×2 (09:48→13:00)
[2017-12-21] MEDS ORDERED: CEFOXITIN INJ 1 GM VIAL IV ONE (09:49)
[2017-12-21 12:11] VITALS: BP 116/64
== END 2017-12-21 13:12 | disposition home or self-care (01) ==
LOC: ER 07:23
DX: N76.0 Acute vaginitis (principal); B96.89 Other specified bacterial agents as the cause of diseases classified elsewhere; N73.9 Female pelvic inflammatory disease, unspecified; N30.00 Acute cystitis without hematuria; E86.0 Dehydration; M54.9 Dorsalgia, unspecified; R11.0 Nausea
CPT/HCPCS: 99284; 81025; 81001; J0694; J3490; J7030

== ENCOUNTER 2017-12-24 08:48 | Emergency (ER) | payer SELFPAY ==
[2017-12-24] MEDS ORDERED: METOCLOPRAMIDE HCL 10 MG TABLET PO ONE (09:04)
[2017-12-24] MEDS ORDERED: ACETAMINOPHEN 325 MG TABLET PO ONE (09:04)
--- NOTE | 2017-12-24 09:05 | ER Document Report ---
ED Medical Screen (RME) - General Chief Complaint: Abdominal Pain Stated Complaint: LOWER ABDOMINAL PAIN Time Seen by Provider: 12/24/17 09:02 Mode of Arrival: Ambulatory Information source: Patient Notes: 22-year-old female with persistent severe intermittent pelvic cramping was diagnosed with chlamydia several weeks ago in the emergency department she is still taking doxycycline. She has a vaginal discharge is yellow. Her IUD that was placed in September was checked at the health department but they did not do any other testing. No Fever or chills. She is very nauseated. TRAVEL OUTSIDE OF THE [place] IN LAST 30 DAYS: No - Related Data Allergies/Adverse Reactions: No Known Allergies Allergy (Verified 12/24/17 08:53) Past Medical History Neurological Medical History: Reports: Hx Migraine Renal/ Medical History: Reports: Hx Pelvic Inflammatory Disease. Denies: Hx Peritoneal Dialysis Psychiatric Medical History: Reports: Hx Anxiety, Hx Depression, Hx Post Traumatic Stress Disorder Past Surgical History: Reports: Hx Cholecystectomy, Hx Oral Surgery - wisdom teeth, Hx Orthopedic Surgery - Right foot - Immunizations Immunizations up to date: Yes Hx Diphtheria, Pertussis, Tetanus Vaccination: Yes Physical Exam - Vital signs Vitals: Temp Pulse Resp BP Pulse Ox 98.1 F 83 16 129/92 H 100 12/24/17 08:51 12/24/17 08:51 12/24/17 08:51 12/24/17 08:51 12/24/17 08:51 Course - Vital Signs Vital signs: Temp Pulse Resp BP Pulse Ox 98.1 F 83 16 129/92 H 100 12/24/17 08:51 12/24/17 08:51 12/24/17 08:51 12/24/17 08:51 12/24/17 08:51
[2017-12-24 09:34] LABS: APPEARANCE,URINE SLIGHTLY-CLOUDY; BILIRUBIN,URINE NEGATIVE (NEGATIVE); COLOR,URINE YELLOW; GLUCOSE, URINE NEGATIVE (NEGATIVE); KETONES,URINE NEGATIVE (NEGATIVE); LEUKOCYTE ESTERASE,URINE NEGATIVE (NEGATIVE); NITRITE,URINE NEGATIVE (NEGATIVE); PROTEIN,URINE NEGATIVE (NEGATIVE); URINE SPECIFIC GRAVITY 1.015; UROBILINOGEN,URINE NEGATIVE mg/dL (<2.0)
--- NOTE | 2017-12-24 09:37 | ER Document Report ---
ED General - General Chief Complaint: Abdominal Pain Stated Complaint: LOWER ABDOMINAL PAIN Time Seen by Provider: 12/24/17 09:02 Mode of Arrival: Ambulatory TRAVEL OUTSIDE OF THE [place] IN LAST 30 DAYS: No - HPI Notes: Patient is a 22-year-old female with no significant past medical history aside from mental health disorders who presents to the ED complaining of intermittent middle to right lower pelvic pain/cramping since she was diagnosed with chlamydia, UTI, BV, and PID. Patient had a visit 7 days ago and then 3 days after that. Patient started her doxycycline at her last visit. Patient got 2 g of Flagyl at 1 of her previous visits as well. Patient states that she no longer has any vaginal discharge. She is able to eat and drink without difficulties. She is urinating normally, but does have some burning at the very end of her urination. Denies any drug allergies. She is having normal bowel movements. Patient states that she did have a few episodes of dry heaving between [address]1233 and 0400 this morning. Patient states that she currently does not have the cramping pain in her pelvic area and does not have any nausea at this time. Denies any headache, fever, URI, sore throat, chest pain, palpitations, syncope, cough, shortness of breath, wheeze, dyspnea, diarrhea, urinary retention, hematuria, loss of control of bowel or bladder, numbness/ tingling, saddle anesthesia, muscle paralysis/weakness, or rash. - Related Data Allergies/Adverse Reactions: No Known Allergies Allergy (Verified 12/24/17 08:53) Past Medical History - General Information source: Patient - Social History Smoking Status: Current Some Day Smoker Chew tobacco use (# tins/day): No Frequency of alcohol use: None Drug Abuse: None Family History: Reviewed & Not Pertinent, DM, Other - Gallbladder disease Patient has suicidal ideation: No Patient has homicidal ideation: No Neurological Medical History: Reports: Hx Migraine Renal/ Medical History: Reports: Hx Pelvic Inflammatory Disease. Denies: Hx Peritoneal Dialysis Psychiatric Medical History: Reports: Hx Anxiety, Hx Depression, Hx Post Traumatic Stress Disorder Past Surgical History: Reports: Hx Cholecystectomy, Hx Oral Surgery - wisdom teeth, Hx Orthopedic Surgery - Right foot - Immunizations Immunizations up to date: Yes Hx Diphtheria, Pertussis, Tetanus Vaccination: Yes Review of Systems - Review of Systems -: Yes All other systems reviewed and negative Physical Exam - Vital signs Vitals: Temp Pulse Resp BP Pulse Ox 98.1 F 83 16 129/92 H 100 12/24/17 08:51 12/24/17 08:51 12/24/17 08:51 12/24/17 08:51 12/24/17 08:51 - Notes Notes: PHYSICAL EXAMINATION: GENERAL: Well-appearing, well-nourished and in no acute distress. EYES: Pupils equal round and reactive to light, extraocular movements intact, conjunctiva are normal. ENT: Nares patent, oropharynx clear without exudates. Moist mucous membranes. No tonsillar hypertrophy or erythema. NECK: Normal range of motion, supple without lymphadenopathy LUNGS: Breath sounds clear to auscultation bilaterally and equal. No wheezes rales or rhonchi. HEART: Regular rate and rhythm without murmurs ABDOMEN: Soft, nontender, nondistended abdomen. No guarding, no rebound. No masses appreciated. Normal bowel sounds present. CVA tenderness negative bilaterally. Female : No inguinal adenopathy. External genitalia without erythema, lesions , or masses. Vaginal mucosa pink with white discharge. Cervix parous, pink. Uterus is smooth. No adnexal tenderness. + mild CMT. Musculoskeletal: FROM to passive/active. Strength 5+/5. Extremities: No cyanosis/clubbing/edema b/l. Peripheral pulses 2+. Capillary refill less than 3 seconds. NEUROLOGICAL: Cranial nerves grossly intact. Normal speech, normal gait. PSYCH: Normal mood, normal affect. SKIN: Warm, Dry, normal turgor, no rashes or lesions noted. Course - Re-evaluation Re-evalutation: 12/24/17 12:02 Patient is an afebrile, well-hydrated, 22-year-old female who presents to the ED with pelvic pain, suspect continued PID and left ovarian cyst. Vitals are acceptable without any significant tachycardia, tachypnea, or hypoxia. PE is otherwise unremarkable. Patient's abdomen is soft and nontender at this time. Pelvic exam was performed and she did have mild cervical motion tenderness. CBC , CMP, urinalysis, hCG, wet mount were unremarkable for acute pathology aside from 1+ white blood cells in the wet mount. Chlam gonorrhea tests are negative. It does appear that the medications have been helping as her as her urinalysis, wet mount, chlam/matty tests have all improved. Advised patient that she needs to continue taking the doxycycline to completion. Transvaginal ultrasound was grossly unremarkable aside from a left ovarian cyst. Patient is nontoxic-appearing and is tolerating p.o. without difficulties. She has not had any episodes of emesis during her stay. Patient is actually requesting to go to the cafeteria to eat some food. Low suspicion/risk for acute appendicitis , bowel obstruction, acute cholecystitis, acute cholangitis, perforated diverticulitis, incarcerated hernia, pancreatitis, perforated ulcer, peritonitis , sepsis, ectopic , tubo-ovarian abscess, ovarian torsion, or other systemic emergent condition at this time. Patient is aware that her condition can change from initial presentation and she needs to monitor symptoms closely and seek medical attention if any acute changes. Conservative measures otherwise for symptoms. Recheck with the [facility]/PCM in 2-3 days. Return to the ED with any worsening/concerning symptoms otherwise as reviewed in discharge. Patient is in agreement. - Vital Signs Vital signs: Temp Pulse Resp BP Pulse Ox 98.1 F 83 16 129/92 H 100 12/24/17 08:51 12/24/17 08:51 12/24/17 08:51 12/24/17 08:51 12/24/17 08:51 - Laboratory Result Diagrams: 12/24/17 09:52 12/24/17 09:52 Laboratory results interpreted by me: 12/24/17 12/24/17 09:15 09:52 Chloride 108 H Carbon Dioxide 19 L Glucose 111 H Urine Blood SMALL H Procedures - Pelvic Exam Pelvic exam Time completed: 09:50 Cultures obtained: Yes Wet prep obtained: Yes Bimanual exam performed: Yes - negative Witnessed by: female nurse- angi Discharge - Discharge Clinical Impression: Pelvic pain, PID (acute pelvic inflammatory disease) Condition: Stable Disposition: HOME, SELF-CARE Instructions: Pelvic Pain ([facility]), Pelvic Inflammatory Disease ([facility]), Ovarian Cyst ([facility]) Additional Instructions: Maintain fluid intake Proper hygenic technique Keep the skin clean Safe sexual practices with condoms everytime Tylenol/ibuprofen as needed Check in with the health department this week for further testing if you have not yet done so Return immediately if symptoms worsen F/u with your PCM/OBGYN in 2-3 days for a recheck Return to the ED with any development of LUCAS/fever, trouble with vision, eye redness, worsening pain, urethral discharge, urinary retention, blood in the urine, flank pain, abdominal pain, n/v, Chest Pain, shortness of breath, joint pains, trouble breathing, or any other worsening/concerning symptoms as needed otherwise. Prescriptions: Naproxen 500 mg PO BID PRN #30 tablet PRN Reason: Forms: Elevated Blood Pressure Referrals: [facility] [Provider Group] - 12/27/17
[2017-12-24 10:05] LABS: BACTERIA (WET MOUNT) 3+ BACTERIA SEEN; T.VAGINALIS (WET MOUNT) NO TRICHOMONAS SEEN; WBCS (WET MOUNT) 1+ WBCS SEEN; YEAST (WET MOUNT) NO YEAST SEEN
[2017-12-24 10:13] LABS: ABSOLUTE EOSINOPHILS # (AUTO) 0.1 10^3/uL (0.0-0.6); ABSOLUTE MONOCYTES (AUTO) 0.4 10^3/uL (0.1-1.4); BASOPHILS % (AUTO) 0.6 % (0-2); EOSINOPHILS % (AUTO) 2.7 % (0-6); HEMATOCRIT 40.7 % (36.0-47.0); LYMPHOCYTES % (AUTO) 34.9 % (13-45); MEAN CORPUSCULAR HEMOGLOBIN 31.4 pg (27.0-33.4); MEAN CORPUSCULAR HGB CONC 34.5 g/dL (32.0-36.0); MEAN CORPUSCULAR VOLUME 91 fl (80-97); MONOCYTES % (AUTO) 7.9 % (3-13); PLATELET COUNT 260 10^3/uL (150-450); RED BLOOD COUNT 4.46 10^6/uL (3.72-5.28); RED CELL DISTRIBUTION WIDTH 12.7 % (11.5-14.0); SEGMENTED NEUTROPHILS % (AUTO) 53.9 % (42-78); TOTAL CELLS COUNTED % (AUTO) 100 %; WHITE BLOOD COUNT 5.6 10^3/uL (4.0-10.5)
[2017-12-24 10:32] LABS: ALANINE AMINOTRANSFERASE 21 U/L (9-52); ALBUMIN 4.3 g/dL (3.5-5.0); ALKALINE PHOSPHATASE 75 U/L (38-126); ANION GAP 16 (5-19); ASPARTATE AMINO TRANSFERASE 20 U/L (14-36); BILIRUBIN,DIRECT 0.3 mg/dL (0.0-0.4); BILIRUBIN,TOTAL 0.3 mg/dL (0.2-1.3); BLOOD UREA NITROGEN 9 mg/dL (7-20); CALCIUM 9.4 mg/dL (8.4-10.2); CARBON DIOXIDE 19 mmol/L (22-30); CHLORIDE 108 mmol/L (98-107); GLUCOSE 111 mg/dL (75-110); POTASSIUM 4.1 mmol/L (3.6-5.0); SODIUM 142.7 mmol/L (137-145); TOTAL PROTEIN 7.4 g/dL (6.3-8.2)
[2017-12-24 11:31] LABS: CHLAM PCR NOT DETECTED (NOT DETECT); GON PCR NOT DETECTED (NOT DETECT)
--- NOTE | 2017-12-24 12:00 | RADIOLOGY REPORT (SQ) ---
EXAM DESCRIPTION: U/S NON OB PEL TV W/DOPPLER COMPLETED DATE/TIME: 12/24/2017 11:42 am REASON FOR STUDY: pelvic pain IUD COMPARISON: None. TECHNIQUE: Dynamic and static grayscale images acquired of the pelvis via transvaginal approach and recorded on PACS. Additional selected color Doppler and spectral images recorded. LIMITATIONS: None. FINDINGS: UTERUS: Contour normal. No mass. ENDOMETRIAL STRIPE: No thickening or fluid. IUD artifact in place. CERVIX: No nabothian cysts. RIGHT OVARY AND DOPPLER: Normal size. No worrisome masses. There is a relatively simple appearing 2. 7 cm cyst. Normal arterial vascular flow without evidence for torsion. LEFT OVARY AND DOPPLER: Ovary not visualized. FREE FLUID: None noted. OTHER: No other significant finding. MEASUREMENTS: UTERUS: 9 x 5 x 4 cm ENDOMETRIAL STRIPE: 7 mm RIGHT OVARY: 4 x 3 x 3 cm LEFT OVARY: Not visualized. IMPRESSION: 1. IUD in place. 2. Simple appearing right ovarian cyst. Doubtful clinical significan ce unless the patient has right romina pelvic pain. There is no evidence of torsion or suspicious mass . TECHNICAL DOCUMENTATION: JOB ID: [id number] [employer]- All Rights Reserved Rev-10/15 Reading location - IP/workstation name: [email or web address]
[2017-12-24 12:23] VITALS: BP 120/71
== END 2017-12-24 12:19 | disposition home or self-care (01) ==
LOC: ER 08:48
DX: N73.9 Female pelvic inflammatory disease, unspecified (principal); N83.202 Unspecified ovarian cyst, left side; R10.2 Pelvic and perineal pain; F17.200 Nicotine dependence, unspecified, uncomplicated; Z97.5 Presence of (intrauterine) contraceptive device
CPT/HCPCS: 36415; 76830; 80053; 81001; 81025; 85025; 87086; 87210; 87491; 87591; 93976; 99284

== ENCOUNTER 2018-01-05 07:51 | Emergency (ER) | payer SELFPAY ==
[2018-01-05 08:10] VITALS: BP 113/79
--- NOTE | 2018-01-05 09:30 | ER Document Report ---
HPI - HPI Pain Level: 5 Notes: Patient is a 22-year-old female who presents to the ED complaining of pain to the skin of her vaginal area posteriorly near the perineum 2 days. Patient states that she was having intercourse with her boyfriend at the time within when she started noticing the pain. Patient states that she is still taking her antibiotics for her PID and multiple other infections. She denies any drug allergies. She has not had any other vaginal discharge, odor, or bleeding. Patient states that overall she is feeling much better after taking the medicines she was prescribed. No other concerns or complaints at this time. Denies any headache, fever, URI, sore throat, chest pain, palpitations, syncope , cough, shortness of breath, wheeze, dyspnea, abdominal pain, nausea/vomiting/ diarrhea, urinary retention, dysuria, hematuria, back pain, or rash. - ROS Systems Reviewed and Negative: Yes All other systems reviewed and negative - REPRODUCTIVE Reproductive: DENIES: : Past Medical History - Social History Smoking Status: Unknown if Ever Smoked Family History: Reviewed & Not Pertinent, DM, Other - Gallbladder disease Neurological Medical History: Reports: Hx Migraine Renal/ Medical History: Reports: Hx Pelvic Inflammatory Disease. Denies: Hx Peritoneal Dialysis Psychiatric Medical History: Reports: Hx Anxiety, Hx Depression, Hx Post Traumatic Stress Disorder Past Surgical History: Reports: Hx Cholecystectomy, Hx Oral Surgery - wisdom teeth, Hx Orthopedic Surgery - Right foot - Immunizations Immunizations up to date: Yes Hx Diphtheria, Pertussis, Tetanus Vaccination: Yes Vertical Provider Document - CONSTITUTIONAL Agree With Documented VS: Yes Notes: PHYSICAL EXAMINATION: GENERAL: Well-appearing, well-nourished and in no acute distress. LUNGS: Breath sounds clear to auscultation bilaterally and equal. No wheezes rales or rhonchi. HEART: Regular rate and rhythm without murmurs ABDOMEN: Soft, nontender, nondistended abdomen. No guarding, no rebound. No masses appreciated. Normal bowel sounds present. CVA tenderness negative bilaterally. Female : No speculum exam performed. No inguinal adenopathy. External genitalia without erythema, lesions, or masses. External Vaginal mucosa pink. There is a small fissure to the posterior vaginal area with scant white yeasty discharge noted. No purulence, streaks, or abscess. (accompanied by diana SAMANO ) Musculoskeletal: FROM to passive/active. Strength 5+/5. Extremities: No cyanosis/clubbing/edema b/l. Peripheral pulses 2+. Capillary refill less than 3 seconds. NEUROLOGICAL: Normal speech, normal gait. PSYCH: Normal mood, normal affect. SKIN: Warm, Dry, normal turgor, no rashes or lesions noted. - INFECTION CONTROL TRAVEL OUTSIDE OF THE [place] IN LAST 30 DAYS: No Course - Re-evaluation Re-evalutation: 01/05/18 10:31 Patient is an afebrile, well-hydrated, 22-year-old female who presents to the ED with a vaginal fissure and what appears to be yeast infection. pt has been on antibiotics since her last visit. Vitals are acceptable without any significant tachycardia, tachypnea, or hypoxia. PE is otherwise unremarkable. Urinalysis unremarkable for acute pathology as well as hCG. Urine cultures pending. I will be sending her home with a prescription for Diflucan as well as intravaginal ointment. Patient is tolerating p.o. without difficulty as it is nontoxic-appearing. No other labs or imaging warranted at this time based on H&P. I will send her home with a prescription for Diflucan and clotrimazole. Conservative measures for symptoms. Recheck with your PCM in 3- 5 days. Consider consult TITLE COORDINATOR. Return to the ED with any worsening/ concerning symptoms otherwise as reviewed in discharge. Patient is in agreement. - Vital Signs Vital signs: Temp Pulse Resp BP Pulse Ox 98.7 F 75 18 113/79 99 01/05/18 08:08 01/05/18 08:08 01/05/18 08:08 01/05/18 08:08 01/05/18 08:08 Discharge - Discharge Clinical Impression: Vaginal bud, Fissured skin Condition: Stable Disposition: HOME, SELF-CARE Additional Instructions: Maintain fluid intake Proper hygenic technique Keep the skin clean Safe sexual practices with condoms everytime, avoid sexual intercourse for at least 10 days Tylenol/ibuprofen as needed F/u with your PCM/OBGYN in 3-5 days for a recheck Return to the ED with any development of LUCAS/fever, trouble with vision, eye redness, worsening pain, urethral discharge, urinary retention, blood in the urine, flank pain, abdominal pain, n/v, Chest Pain, shortness of breath, joint pains, trouble breathing, or any other worsening/concerning symptoms as needed otherwise. Prescriptions: Clotrimazole [Clotrimazole 3] 1 - 2 gm VG BID 10 Days #1 bottle Fluconazole [Diflucan] 150 mg PO ONCE PRN #1 tablet PRN Reason: Referrals: [facility] [Provider Group] - Follow up in 3-5 days
[2018-01-05 10:17] LABS: AMORPHOUS SEDIMENT,URINE TRACE /HPF; APPEARANCE,URINE CLOUDY; BILIRUBIN,URINE NEGATIVE (NEGATIVE); COLOR,URINE YELLOW; GLUCOSE, URINE NEGATIVE (NEGATIVE); KETONES,URINE NEGATIVE (NEGATIVE); LEUKOCYTE ESTERASE,URINE SMALL (NEGATIVE); NITRITE,URINE NEGATIVE (NEGATIVE); PROTEIN,URINE NEGATIVE (NEGATIVE); URINE SPECIFIC GRAVITY 1.015; UROBILINOGEN,URINE NEGATIVE mg/dL (<2.0)
== END 2018-01-05 10:45 | disposition home or self-care (01) ==
LOC: ER 07:51
DX: B37.3 Candidiasis of vulva and vagina (principal); R23.4 Changes in skin texture; N73.9 Female pelvic inflammatory disease, unspecified
CPT/HCPCS: 81001; 81025; 87086; 99283

== ENCOUNTER 2018-01-24 18:26 | Emergency (ER) | payer SELFPAY ==
[2018-01-24 19:25] VITALS: BP 119/78
--- NOTE | 2018-01-24 20:02 | ER Document Report ---
ED Medical Screen (RME) - General Chief Complaint: Vaginal Discharge Stated Complaint: VAGINAL DISCHARGE Time Seen by Provider: 01/24/18 19:54 Notes: 22-year-old female with recent history of PID and chlamydia. Just finished extended course of doxycycline. Still having intermittent cramping in the lower pelvic region with increased vaginal discharge. Some pain with intercourse. Still having sex with the same individual. Her partner is currently in the emergency department getting checked for STDs as well. Patient wants to get checked again for STDs and "has a sore down there" area I have greeted and performed a rapid initial assessment of this patient. A comprehensive ED assessment and evaluation of the patient, analysis of test results and completion of the medical decision making process will be conducted by additional ED providers. TRAVEL OUTSIDE OF THE [place] IN LAST 30 DAYS: No - Related Data Allergies/Adverse Reactions: No Known Allergies Allergy (Verified 01/05/18 07:52) Past Medical History Neurological Medical History: Reports: Hx Migraine Renal/ Medical History: Reports: Hx Pelvic Inflammatory Disease. Denies: Hx Peritoneal Dialysis Psychiatric Medical History: Reports: Hx Anxiety, Hx Depression, Hx Post Traumatic Stress Disorder Past Surgical History: Reports: Hx Cholecystectomy, Hx Oral Surgery - wisdom teeth, Hx Orthopedic Surgery - Right foot - Immunizations Immunizations up to date: Yes Hx Diphtheria, Pertussis, Tetanus Vaccination: Yes Review of Systems - Review of Systems Notes: Review of systems positive for the following: Vaginal discharge, pelvic cramping , perineal sore Physical Exam - Vital signs Vitals: Temp Pulse Resp BP Pulse Ox 99.6 F 68 16 119/78 100 01/24/18 19:24 01/24/18 19:24 01/24/18 19:24 01/24/18 19:24 01/24/18 19:24 Course - Vital Signs Vital signs: Temp Pulse Resp BP Pulse Ox 99.6 F 68 16 119/78 100 01/24/18 19:24 01/24/18 19:24 01/24/18 19:24 01/24/18 19:24 01/24/18 19:24
== END 2018-01-24 21:10 | disposition left against medical advice (07) ==
LOC: ER 18:26
DX: N89.8 Other specified noninflammatory disorders of vagina (principal); R10.2 Pelvic and perineal pain; Z90.49 Acquired absence of other specified parts of digestive tract
CPT/HCPCS: 99281

== ENCOUNTER 2018-06-02 15:57 | Emergency (ER) | payer SELFPAY ==
[2018-06-02] MEDS ORDERED: ONDANSETRON 4 MG TAB.RAPDIS PO ONE (18:41)
[2018-06-02] MEDS ORDERED: DIPHENOXYLATE HCL/ATROP SULF 2.5-0.025 MG TABLET PO ONE (18:42)
--- NOTE | 2018-06-02 20:07 | ER Document Report ---
ED Medical Screen (RME) - General Chief Complaint: Nausea/Vomiting/Diarrhea Stated Complaint: VOMITING, DIARRHEA, ABDOMINAL PAIN Time Seen by Provider: 06/02/18 18:41 Mode of Arrival: Ambulatory Information source: Patient TRAVEL OUTSIDE OF THE [place] IN LAST 30 DAYS: No - HPI Patient complains to provider of: Food poisoning Onset: Other - Healthy 22-year-old female presents for evaluation of an episode of single episode of vomiting today as well as profuse watery diarrhea since eating [place] food earlier today. She notes that she had rice as well as some vegetables etc. thereafter she began to have some gurgling in her stomach which then progressed to having profuse diarrhea while she was at work prompting her to seek care today. She has been sipping a small amount of Gatorade to try and help with it since that time. - Related Data Allergies/Adverse Reactions: No Known Allergies Allergy (Verified 06/02/18 15:58) Past Medical History - General Information source: Patient - Social History Chew tobacco use (# tins/day): No Frequency of alcohol use: Social Drug Abuse: None Neurological Medical History: Reports: Hx Migraine Renal/ Medical History: Reports: Hx Pelvic Inflammatory Disease. Denies: Hx Peritoneal Dialysis Psychiatric Medical History: Reports: Hx Anxiety, Hx Depression, Hx Post Traumatic Stress Disorder Past Surgical History: Reports: Hx Cholecystectomy, Hx Oral Surgery - wisdom teeth, Hx Orthopedic Surgery - Right foot - Immunizations Immunizations up to date: Yes Hx Diphtheria, Pertussis, Tetanus Vaccination: Yes Review of Systems - Review of Systems -: Yes All other systems reviewed and negative Physical Exam - Vital signs Vitals: Temp Pulse Resp BP Pulse Ox 99.2 F 78 18 107/57 L 99 06/02/18 16:01 06/02/18 16:01 06/02/18 16:01 06/02/18 16:01 06/02/18 16:01 Interpretation: Normal - General General appearance: Appears well, Alert - HEENT Head: Normocephalic, Atraumatic Eyes: Normal Pupils: PERRL - Respiratory Respiratory status: No respiratory distress Chest status: Nontender Breath sounds: Normal Chest palpation: Normal - Cardiovascular Rhythm: Regular Heart sounds: Normal auscultation Murmur: No - Abdominal Inspection: Normal Distension: No distension Bowel sounds: Normal Tenderness: Nontender Organomegaly: No organomegaly - Back Back: Normal, Nontender - Extremities General upper extremity: Normal inspection, Nontender, Normal color, Normal ROM, Normal temperature General lower extremity: Normal inspection, Nontender, Normal color, Normal ROM, Normal temperature, Normal weight bearing. No: Jc's sign - Neurological Neuro grossly intact: Yes Cognition: Normal Orientation: AAOx4 [place] Coma Scale Eye Opening: Spontaneous Marv Coma Scale Verbal: Oriented Marv Coma Scale Motor: Obeys Commands Marv Coma Scale Total: 15 Speech: Normal Motor strength normal: LUE, RUE, LLE, RLE Sensory: Normal - Psychological Associated symptoms: Normal affect, Normal mood - Skin Skin Temperature: Warm Skin Moisture: Dry Skin Color: Normal Course - Re-evaluation Re-evalutation: 06/02/18 20:57 This 22-year-old female who is on control currently that presents for evaluation of nausea vomiting diarrhea for the last several hours after eating [place] food. We will plan for this patient undergo treatment with Zofran, p.o. challenge. We will also give patient Lomotil for diarrhea. Following administration of Zofran as well as Lomotil patient was able to tolerate p.o., she said that her nausea was entirely resolved and she was feeling much improved. Nothing is making it worse at this time she is been able to drink. Her abdominal examination remains benign at this time. We will plan for her to undergo discharge with return precautions and expectant management with a prescription for both Zofran as well as Lomotil. - Vital Signs Vital signs: Temp Pulse Resp BP Pulse Ox 99.0 F 66 16 113/62 96 06/02/18 20:50 06/02/18 20:50 06/02/18 20:50 06/02/18 20:50 06/02/18 20:50 Doctor's Discharge - Discharge Clinical Impression: Food poisoning Qualifiers: Encounter type: initial encounter Injury intent: undetermined intent Qualified Code(s): T62.94XA - Toxic effect of unspecified noxious substance eaten as food, undetermined, initial encounter Condition: Good Disposition: HOME, SELF-CARE Instructions: Food Poisoning ([facility]) Additional Instructions: Your seen today in the emergency department for your vomiting and diarrhea. He had evaluation including a physical exam. It is likely that you have food poisoning. You have been given medications to help with your vomiting as well as your diarrhea. Use these medications as needed over the next several days. Return for worsening abdominal pain, diarrhea or inability to eat or drink. Prescriptions: Diphenoxylate HCl/Atropine [Lomotil Tablet] 1 each PO BID PRN #20 tablet PRN Reason: Ondansetron [Zofran Odt 4 mg Tablet] 1 - 2 tab PO Q4H PRN #15 tab.rapdis PRN Reason: For Nausea/Vomiting Forms: Return to Work
[2018-06-02 20:55] VITALS: BP 113/62
== END 2018-06-02 20:51 | disposition home or self-care (01) ==
LOC: ER 15:57
DX: T62.94XA Toxic effect of unspecified noxious substance eaten as food, undetermined, initial encounter (principal); R11.2 Nausea with vomiting, unspecified; R19.7 Diarrhea, unspecified; X58.XXXA Exposure to other specified factors, initial encounter; Z90.49 Acquired absence of other specified parts of digestive tract
CPT/HCPCS: 99283; J3490; S0119

== ENCOUNTER 2018-07-02 12:11 | Emergency (ER) | payer SELFPAY ==
[2018-07-02 12:16] VITALS: BP 129/90
--- NOTE | 2018-07-02 12:40 | ER Document Report ---
ED Medical Screen (RME) - General Chief Complaint: Nausea/Vomiting/Diarrhea Stated Complaint: DIZZINESS Time Seen by Provider: 07/02/18 12:39 TRAVEL OUTSIDE OF THE [place] IN LAST 30 DAYS: No - HPI Notes: 07/02/18 12:39 Epigastric abdominal pain diarrhea patient drinking water in triage - Related Data Allergies/Adverse Reactions: No Known Allergies Allergy (Verified 07/02/18 12:12) Past Medical History Neurological Medical History: Reports: Hx Migraine Renal/ Medical History: Reports: Hx Pelvic Inflammatory Disease. Denies: Hx Peritoneal Dialysis Psychiatric Medical History: Reports: Hx Anxiety, Hx Depression, Hx Post Traumatic Stress Disorder Past Surgical History: Reports: Hx Cholecystectomy, Hx Oral Surgery - wisdom teeth, Hx Orthopedic Surgery - Right foot - Immunizations Immunizations up to date: Yes Hx Diphtheria, Pertussis, Tetanus Vaccination: Yes Review of Systems - Review of Systems Gastrointestinal: Abdominal pain Physical Exam - Vital signs Vitals: Temp Pulse Resp BP Pulse Ox 99.0 F 72 18 129/90 H 99 07/02/18 12:15 07/02/18 12:15 07/02/18 12:15 07/02/18 12:15 07/02/18 12:15 - Cardiovascular Rhythm: Regular Heart sounds: Normal auscultation Course - Vital Signs Vital signs: Temp Pulse Resp BP Pulse Ox 99.0 F 72 18 129/90 H 99 07/02/18 12:15 07/02/18 12:15 07/02/18 12:15 07/02/18 12:15 07/02/18 12:15
[2018-07-02] MEDS ORDERED: METOCLOPRAMIDE HCL 10 MG TABLET PO ONE (12:46)
--- NOTE | 2018-07-02 12:48 | ER Document Report ---
ED General - General Chief Complaint: Nausea/Vomiting/Diarrhea Stated Complaint: DIZZINESS Time Seen by Provider: 07/02/18 12:39 TRAVEL OUTSIDE OF THE [place] IN LAST 30 DAYS: No - HPI Patient complains to provider of: Nausea vomiting diarrhea Notes: Patient coming in for nausea vomiting diarrhea ongoing for approximate the past 24-48 hours. Patient states that having multiple bouts of nausea vomiting diarrhea. Patient states also is currently on metronidazole because of infection that was found by the health department. Patient states intermittent compliance with this antibiotic. Patient denies any recent travel denies any A brief review of the patient's past medical records available in [facility] was performed - Related Data Allergies/Adverse Reactions: No Known Allergies Allergy (Verified 07/02/18 12:12) Past Medical History - Social History Smoking Status: Never Smoker Drug Abuse: Marijuana Family History: Reviewed & Not Pertinent, DM, Other - Gallbladder disease Patient has suicidal ideation: No Patient has homicidal ideation: No Neurological Medical History: Reports: Hx Migraine Renal/ Medical History: Reports: Hx Pelvic Inflammatory Disease. Denies: Hx Peritoneal Dialysis Psychiatric Medical History: Reports: Hx Anxiety, Hx Depression, Hx Post Traumatic Stress Disorder Past Surgical History: Reports: Hx Cholecystectomy, Hx Oral Surgery - wisdom teeth, Hx Orthopedic Surgery - Right foot - Immunizations Immunizations up to date: Yes Hx Diphtheria, Pertussis, Tetanus Vaccination: Yes Review of Systems - Review of Systems Constitutional: No symptoms reported EENT: No symptoms reported Cardiovascular: No symptoms reported Respiratory: No symptoms reported Gastrointestinal: Diarrhea, Nausea, Vomiting Genitourinary: No symptoms reported Female Genitourinary: No symptoms reported Musculoskeletal: No symptoms reported Skin: No symptoms reported Hematologic/Lymphatic: No symptoms reported Neurological/Psychological: No symptoms reported -: Yes All other systems reviewed and negative Physical Exam - Vital signs Vitals: Temp Pulse Resp BP Pulse Ox 99.0 F 72 18 129/90 H 99 07/02/18 12:15 07/02/18 12:15 07/02/18 12:15 07/02/18 12:15 07/02/18 12:15 Interpretation: Normal - General General appearance: Appears well, Alert - HEENT Head: Normocephalic, Atraumatic Eyes: Normal Pupils: PERRL - Respiratory Respiratory status: No respiratory distress Chest status: Nontender Breath sounds: Normal Chest palpation: Normal - Cardiovascular Rhythm: Regular Heart sounds: Normal auscultation Murmur: No - Abdominal Inspection: Normal Distension: No distension Bowel sounds: Normal Tenderness: Nontender Organomegaly: No organomegaly - Back Back: Normal, Nontender - Extremities General upper extremity: Normal inspection, Nontender, Normal color, Normal ROM, Normal temperature General lower extremity: Normal inspection, Nontender, Normal color, Normal ROM, Normal temperature, Normal weight bearing. No: Jc's sign - Neurological Neuro grossly intact: Yes Cognition: Normal Orientation: AAOx4 [place] Coma Scale Eye Opening: Spontaneous Marv Coma Scale Verbal: Oriented [place] Coma Scale Motor: Obeys Commands [place] Coma Scale Total: 15 Speech: Normal Motor strength normal: LUE, RUE, LLE, RLE Sensory: Normal - Psychological Associated symptoms: Normal affect, Normal mood - Skin Skin Temperature: Warm Skin Moisture: Dry Skin Color: Normal Course - Re-evaluation Re-evalutation: 07/02/18 14:19 The patient presents with nausea vomiting diarrhea without signs of peritonitis or other life-threatening or serious etiology. The patient appears stable for discharge and has been instructed to return immediately if the symptoms worsen in any way, or in 8-12hr if not improved for re-evaluation. The patient has been instructed to return if the symptoms worsen or change in any way. - Vital Signs Vital signs: Temp Pulse Resp BP Pulse Ox 99.0 F 72 18 129/90 H 99 07/02/18 12:15 07/02/18 12:15 07/02/18 12:15 07/02/18 12:15 07/02/18 12:15 Discharge - Discharge Clinical Impression: Nausea vomiting and diarrhea Condition: Good Disposition: HOME, SELF-CARE Instructions: Gastroenteritis (adult) ([facility]), Metronidazole ([facility]) Additional Instructions: Follow-up with your primary care physician return to the ER symptoms worsen. Take medications as prescribed. Please continue your metronidazole until it is completed. Prescriptions: Metoclopramide HCl [Reglan] 5 mg PO Q6 #30 tablet Forms: Return to Work
== END 2018-07-02 12:51 | disposition home or self-care (01) ==
LOC: ER 12:11
DX: R11.2 Nausea with vomiting, unspecified (principal); R19.7 Diarrhea, unspecified; B99.9 Unspecified infectious disease; Z91.14 Patient's other noncompliance with medication regimen
CPT/HCPCS: 99283

== ENCOUNTER 2018-07-07 13:57 | Emergency (ER) | payer SELFPAY ==
--- NOTE | 2018-07-07 15:51 | ER Document Report ---
HPI - HPI Time Seen by Provider: 07/07/18 15:24 Onset/Duration: Persistent Quality of pain: Burning Pain Level: 2 Context: Patient presents complaining of 4-day history of left eye tearing, drainage. Patient does wear glasses and denies any use of contact lenses. Associated Symptoms: Other - left eye redness and tearing Exacerbated by: Denies Relieved by: Denies Similar symptoms previously: No Recently seen / treated by doctor: No - ROS ROS below otherwise negative: Yes Systems Reviewed and Negative: Yes All other systems reviewed and negative - EENT EENT: REPORTS: Eye problems - GASTROINTESTINAL Gastrointestinal: DENIES: Nausea - REPRODUCTIVE Reproductive: DENIES: : - DERM Skin Color: Normal Skin Problems: None Past Medical History - General Information source: Patient - Social History Smoking Status: Never Smoker Frequency of alcohol use: None Drug Abuse: Marijuana Family History: Reviewed & Not Pertinent, DM, Other - Gallbladder disease Neurological Medical History: Reports: Hx Migraine Renal/ Medical History: Reports: Hx Pelvic Inflammatory Disease. Denies: Hx Peritoneal Dialysis Psychiatric Medical History: Reports: Hx Anxiety, Hx Depression, Hx Post Traumatic Stress Disorder Past Surgical History: Reports: Hx Cholecystectomy, Hx Oral Surgery - wisdom teeth, Hx Orthopedic Surgery - Right foot - Immunizations Immunizations up to date: Yes Hx Diphtheria, Pertussis, Tetanus Vaccination: Yes Vertical Provider Document - CONSTITUTIONAL Agree With Documented VS: Yes Exam Limitations: No Limitations General Appearance: WD/WN, No Apparent Distress - INFECTION CONTROL TRAVEL OUTSIDE OF THE [place] IN LAST 30 DAYS: No - HEENT HEENT: Atraumatic, Normocephalic Notes: Mild injection to the sclera of left eye, extraocular movements intact. No corneal abrasion, foreign body or dendrite. No fluoroscein uptake. Patient with mucoid drainage matting eyelashes. - NECK Neck: Normal Inspection - RESPIRATORY Respiratory: No Respiratory Distress - BACK Back: Normal Inspection - MUSCULOSKELETAL/EXTREMETIES Musculoskeletal/Extremeties: [place] - NEURO Level of Consciousness: Awake, Alert, Appropriate Motor/Sensory: No Motor Deficit - DERM Integumentary: Warm, Dry Course - Vital Signs Vital signs: Temp Pulse Resp BP Pulse Ox 98.3 F 67 16 119/65 100 07/07/18 14:53 07/07/18 14:53 07/07/18 14:53 07/07/18 14:53 07/07/18 14:53 Discharge - Discharge Clinical Impression: Conjunctivitis Qualifiers: Conjunctivitis type: unspecified Laterality: left Qualified Code(s): H10.9 - Unspecified conjunctivitis Condition: Stable Disposition: HOME, SELF-CARE Instructions: Conjunctivitis ([facility]), Eyedrop Use ([facility]) Additional Instructions: Return immediately for any new or worsening symptoms Followup with your primary care provider, call tomorrow to make a followup appointment Follow-up with ophthalmology for any persistent or worsening symptoms Prescriptions: Polymyxin B Sulfate/Tmp [Polytrim Oph Soln 10 ml] 1 drop LFT_EYE ASDIR #1 bottle Forms: Return to Work Referrals: [facility] [Provider Group] - Follow up as needed
[2018-07-07 16:03] VITALS: BP 123/73
== END 2018-07-07 16:03 | disposition home or self-care (01) ==
LOC: ER 13:57
DX: H10.9 Unspecified conjunctivitis (principal)
CPT/HCPCS: 99283

== ENCOUNTER 2018-10-07 14:55 | Emergency (ER) | payer SELFPAY ==
[2018-10-07] MEDS ORDERED: ONDANSETRON 4 MG TAB.RAPDIS PO ONE (15:49)
--- NOTE | 2018-10-07 15:50 | ER Document Report ---
ED Medical Screen (RME) - General Chief Complaint: Possible Kidney Stone Stated Complaint: NAUSEA Time Seen by Provider: 10/07/18 15:49 Mode of Arrival: Ambulatory Information source: Patient Notes: Patient presents complaining of vaginal pain and lower pelvic pain that radiates around to her low back. Patient states she has had the pain initially off and on but has become persistent today. Symptoms started 3 days ago. Patient does complain of nausea and states she had diarrhea x2 episodes. Patient denies any fever. Patient does complain of burning at the end of her urinary stream. I have greeted and performed a rapid initial assessment of this patient. A comprehensive ED assessment and evaluation of the patient, analysis of test results and completion of the medical decision making process will be conducted by additional ED providers. TRAVEL OUTSIDE OF THE [place] IN LAST 30 DAYS: No - Related Data Allergies/Adverse Reactions: No Known Allergies Allergy (Verified 10/07/18 14:56) Past Medical History Neurological Medical History: Reports: Hx Migraine Renal/ Medical History: Reports: Hx Pelvic Inflammatory Disease. Denies: Hx Peritoneal Dialysis Psychiatric Medical History: Reports: Hx Anxiety, Hx Depression, Hx Post Traumatic Stress Disorder Past Surgical History: Reports: Hx Cholecystectomy, Hx Oral Surgery - wisdom teeth, Hx Orthopedic Surgery - Right foot - Immunizations Immunizations up to date: Yes Hx Diphtheria, Pertussis, Tetanus Vaccination: Yes Physical Exam - Vital signs Vitals: Temp Pulse Resp BP Pulse Ox 98.7 F 66 16 135/89 H 99 10/07/18 15:08 10/07/18 15:08 10/07/18 15:08 10/07/18 15:08 10/07/18 15:08 - Abdominal Tenderness: Tender - Lower pelvic Course - Vital Signs Vital signs: Temp Pulse Resp BP Pulse Ox 98.7 F 66 16 135/89 H 99 10/07/18 15:08 10/07/18 15:08 10/07/18 15:08 10/07/18 15:08 10/07/18 15:08
[2018-10-07 17:26] LABS: ABSOLUTE EOSINOPHILS # (AUTO) 0.1 10^3/uL (0.0-0.6); ABSOLUTE LYMPHOCYTES (AUTO) 2.7 10^3/uL (0.5-4.7); ABSOLUTE MONOCYTES (AUTO) 0.4 10^3/uL (0.1-1.4); ABSOLUTE NEUT (AUTO) 6.4 10^3/uL (1.7-8.2); BASOPHILS % (AUTO) 0.5 % (0-2); EOSINOPHILS % (AUTO) 0.7 % (0-6); HEMATOCRIT 43.9 % (36.0-47.0); HEMOGLOBIN 15.1 g/dL (12.0-15.5); MEAN CORPUSCULAR HEMOGLOBIN 31.3 pg (27.0-33.4); MEAN CORPUSCULAR HGB CONC 34.5 g/dL (32.0-36.0); MEAN CORPUSCULAR VOLUME 91 fl (80-97); MONOCYTES % (AUTO) 4.3 % (3-13); PLATELET COUNT 284 10^3/uL (150-450); RED BLOOD COUNT 4.84 10^6/uL (3.72-5.28); RED CELL DISTRIBUTION WIDTH 12.6 % (11.5-14.0); SEGMENTED NEUTROPHILS % (AUTO) 66.5 % (42-78); TOTAL CELLS COUNTED % (AUTO) 100 %; WHITE BLOOD COUNT 9.6 10^3/uL (4.0-10.5)
[2018-10-07 17:43] LABS: ANION GAP 11 (5-19); BLOOD UREA NITROGEN 8 mg/dL (7-20); CALCIUM 10.1 mg/dL (8.4-10.2); CARBON DIOXIDE 26 mmol/L (22-30); CHLORIDE 104 mmol/L (98-107); GLUCOSE 89 mg/dL (75-110); POTASSIUM 4.1 mmol/L (3.6-5.0); SODIUM 141.1 mmol/L (137-145)
[2018-10-07] MEDS ORDERED: KETOROLAC TROMETHAMINE 60 MG/2 ML SDV IM ONE (19:55)
[2018-10-07] MEDS ORDERED: PHENAZOPYRIDINE HCL 200 MG TABLET PO ONE (19:55)
[2018-10-07 20:20] LABS: APPEARANCE,URINE CLOUDY; BILIRUBIN,URINE NEGATIVE (NEGATIVE); COLOR,URINE YELLOW; GLUCOSE, URINE NEGATIVE (NEGATIVE); KETONES,URINE 80 mg/dL (NEGATIVE); LEUKOCYTE ESTERASE,URINE TRACE (NEGATIVE); NITRITE,URINE NEGATIVE (NEGATIVE); PROTEIN,URINE 100 mg/dL (NEGATIVE); URINE SPECIFIC GRAVITY 1.026; UROBILINOGEN,URINE NEGATIVE mg/dL (<2.0)
--- NOTE | 2018-10-07 22:09 | ER Document Report ---
ED GI/ - General Chief Complaint: Possible Kidney Stone Stated Complaint: NAUSEA Time Seen by Provider: 10/07/18 15:49 Mode of Arrival: Ambulatory Information source: Patient Notes: Patient is a 23-year-old female comes emergency room complaining of dysuria. Patient states that started approximately 3 days ago she has some mild low back pain. She is having a lot of hesitancy more than anything else. She states that when she wipes she has a little bit of pinkish on her toilet paper. She feels like she has to go and urinate every 10 to 15 minutes. She has had some mild right-sided flank pain as well. She denies any nausea vomiting or diarrhea. She denies any sexually transmitted disease exposure although she was curious as to why the order that upfront. Patient is attempted to do a clean and dirty urine without success. TRAVEL OUTSIDE OF THE [place] IN LAST 30 DAYS: No - HPI Patient complains to provider of: Flank pain, Hematuria. 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 Sexual history: Active Associated symptoms: Dysuria, Urinary hesitancy, Urinary frequency, Urinary retention, Urinary urgency Exacerbated by: Denies Relieved by: Denies Similar symptoms previously: Yes Recently seen / treated by doctor: No - Related Data Allergies/Adverse Reactions: No Known Allergies Allergy (Verified 10/07/18 14:56) Past Medical History - General Information source: Patient - Social History Smoking Status: Current Every Day Smoker Cigarette use (# per day): Yes - Quarter pack a day Chew tobacco use (# tins/day): No Smoking Education Provided: Yes Frequency of alcohol use: None Drug Abuse: None Lives with: Family Family History: Reviewed & Not Pertinent, DM, Other - Gallbladder disease Patient has suicidal ideation: No Patient has homicidal ideation: No Neurological Medical History: Reports: Hx Migraine Renal/ Medical History: Reports: Hx Pelvic Inflammatory Disease. Denies: Hx Peritoneal Dialysis Psychiatric Medical History: Reports: Hx Anxiety, Hx Depression, Hx Post Traumatic Stress Disorder Past Surgical History: Reports: Hx Cholecystectomy, Hx Oral Surgery - wisdom teeth, Hx Orthopedic Surgery - Right foot - Immunizations Immunizations up to date: Yes Hx Diphtheria, Pertussis, Tetanus Vaccination: Yes Review of Systems - Review of Systems Constitutional: No symptoms reported EENT: No symptoms reported Cardiovascular: No symptoms reported Respiratory: No symptoms reported Gastrointestinal: No symptoms reported Genitourinary: See HPI, Dysuria, Frequency, Flank pain, Hematuria, Urgency, Retention. denies: Discharge Female Genitourinary: No symptoms reported. denies: Last menstrual period, , Vaginal discharge, Vaginal bleeding, Painful intercourse Musculoskeletal: No symptoms reported Skin: No symptoms reported Hematologic/Lymphatic: No symptoms reported Neurological/Psychological: No symptoms reported -: Yes All other systems reviewed and negative Physical Exam - Vital signs Vitals: Temp Pulse Resp BP Pulse Ox 98.7 F 66 16 135/89 H 99 10/07/18 15:08 10/07/18 15:08 10/07/18 15:08 10/07/18 15:08 10/07/18 15:08 Interpretation: Hypertensive - Notes Notes: PHYSICAL EXAMINATION: GENERAL: well-nourished and in no acute distress. Slightly uncomfortable appearing HEAD: Atraumatic, normocephalic. LUNGS: Breath sounds clear to auscultation bilaterally and equal. No wheezes rales or rhonchi. HEART: Regular rate and rhythm without murmurs ABDOMEN: Examination patient's abdomen shows she has some mild tenderness to palpation in suprapubic region only. She has bowel sounds in all 4 quads she is nontender in no lower quads or upper quads tube palpation or percussion. The only as stated area of discomfort is suprapubically. She also displays some mild right-sided flank tenderness to percussion. Female : deferred patient wishes to follow-up with her TUBE TELLER because she has an the Mirena Musculoskeletal: Normal range of motion, no pitting or edema. No cyanosis. NEUROLOGICAL: Normal speech, normal gait. Normal sensory, motor exams PSYCH: Normal mood, normal affect. SKIN: Warm, Dry, normal turgor, no rashes or lesions noted. Course - Re-evaluation Re-evalutation: 10/08/18 01:46 Patient wishes to follow-up with her TUBE TELLER for pelvic examination. Even though she has been offered to have one done here. - Vital Signs Vital signs: Temp Pulse Resp BP Pulse Ox 98.2 F 56 L 16 135/87 H 100 10/07/18 22:13 10/07/18 22:13 10/07/18 15:08 10/07/18 22:13 10/07/18 22:13 - Laboratory Result Diagrams: 10/07/18 17:00 10/07/18 17:00 Laboratory results interpreted by me: 10/07/18 19:30 Urine Protein 100 H Urine Ketones 80 H Urine Blood LARGE H Ur Leukocyte Esterase TRACE H Discharge - Discharge Clinical Impression: Urethritis, Urethral spasms Condition: Stable Disposition: HOME, SELF-CARE Instructions: Urethritis ([facility]) Additional Instructions: As we discussed home and rest. Medication as prescribed. Highly suggest that you follow-up with your CORPORATE [employer] [facility]STATE SPECIALIST on the bleeding portion of this since the IUD is been a year no periods. Given that you prefer them to do the pelvic exam I totally understand. Should you have increased bleeding over the weekend please return to ER and we will run a CT and up to do a pelvic exam if need be. Prescriptions: Cephalexin Monohydrate [Keflex 500 mg Capsule] 500 mg PO QID 7 Days #28 capsule Phenazopyridine HCl [Pyridium 200 mg Tablet] 200 mg PO TID 2 Days #6 tablet Forms: Elevated Blood Pressure, Smoking Cessation Education, Return to Work
[2018-10-07 22:15] VITALS: BP 135/87
== END 2018-10-07 22:38 | disposition home or self-care (01) ==
LOC: ER 14:55
DX: N34.2 Other urethritis (principal); N13.5 Crossing vessel and stricture of ureter without hydronephrosis; R11.0 Nausea; R30.0 Dysuria; R31.9 Hematuria, unspecified; F17.210 Nicotine dependence, cigarettes, uncomplicated; Z97.5 Presence of (intrauterine) contraceptive device; Z90.49 Acquired absence of other specified parts of digestive tract
CPT/HCPCS: 99283; 96374; 36415; 84703; 85025; 80048; 81001; J1885; S0119; J3490

== ENCOUNTER 2018-12-03 11:15 | Emergency (ER) | payer SELFPAY ==
[2018-12-03 11:21] VITALS: BP 118/93
[2018-12-03] MEDS ORDERED: IBUPROFEN 800 MG TABLET PO ONE (11:30)
--- NOTE | 2018-12-03 11:31 | ER Document Report ---
HPI - HPI Patient complains to provider of: Right knee pain Time Seen by Provider: 12/03/18 11:23 Onset: Other - 3 days Onset/Duration: Persistent Quality of pain: Achy Pain Level: 4 Context: Patient states she was running up stairs 3 days ago and felt a pull in her right knee. Patient states since then she has had pain with ambulation. Associated Symptoms: Other - Right knee injury Exacerbated by: Standing, Movement, Walking Relieved by: Sitting, Remaining still Similar symptoms previously: No Recently seen / treated by doctor: No - ROS ROS below otherwise negative: Yes Systems Reviewed and Negative: Yes All other systems reviewed and negative - CONSTITUTIONAL Constitutional: DENIES: Fever - NEURO Neurology: DENIES: Weakness - REPRODUCTIVE Reproductive: DENIES: : - MUSCULOSKELETAL Musculoskeletal: REPORTS: Extremity pain. 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 Denies: Hx Peritoneal Dialysis Psychiatric Medical History: Reports: Hx Anxiety, Hx Depression, Hx Post Traumatic Stress Disorder Past Surgical History: Reports: Hx Cholecystectomy, Hx Oral Surgery - wisdom teeth, Hx Orthopedic Surgery - Right foot - Immunizations Immunizations up to date: Yes Hx Diphtheria, Pertussis, Tetanus Vaccination: Yes Vertical Provider Document - CONSTITUTIONAL Agree With Documented VS: Yes Exam Limitations: No Limitations General Appearance: WD/WN, No Apparent Distress - INFECTION CONTROL TRAVEL OUTSIDE OF THE [place] IN LAST 30 DAYS: No - HEENT HEENT: Atraumatic, Normocephalic - NECK Neck: Normal Inspection - RESPIRATORY Respiratory: No Respiratory Distress - CARDIOVASCULAR Pulses: Normal: Posterior tibial - MUSCULOSKELETAL/EXTREMETIES Musculoskeletal/Extremeties: MAEW, FROM, Tender - Right knee joint tenderness to medial compartment, no effusion, no laxity with varus or valgus maneuvers. Patellar tendon intact - NEURO Level of Consciousness: Awake, Alert, Appropriate Motor/Sensory: No Motor Deficit, No Sensory Deficit - DERM Integumentary: Warm, Dry, No Rash Course - Vital Signs Vital signs: Temp Pulse Resp BP Pulse Ox 98.2 F 71 18 118/93 H 100 07/06/19 11:18 12/03/18 11:18 12/03/18 11:18 12/03/18 11:18 12/03/18 11:18 Procedures - Immobilization Right Knee Pre-Proc Neuro Vasc Exam: Normal Immobilizer type: Cedric wrap Performed by: PCT Post-Proc Neuro Vasc Exam: Normal Alignment checked and good: Yes Discharge - Discharge Clinical Impression: Right knee sprain Qualifiers: Encounter type: initial encounter Involved ligament of knee: unspecified ligame nt Qualified Code(s): S83.91XA - Sprain of unspecified site of right knee, initial encounter Condition: Stable Disposition: HOME, SELF-CARE Instructions: Use of Crutches ([facility]), Ice & Elevation ([facility]), Sprained Knee ([facility]) Additional Instructions: Return immediately for any new or worsening symptoms Followup with your primary care provider, call tomorrow to make a followup appointment Weightbearing as tolerated Follow-up with orthopedics for any persistent pain or problems Prescriptions: Naproxen [Naprosyn 250 Nmg Tablet] 1 tab PO BID #14 tablet Forms: Smoking Cessation Education, Return to Work Referrals: [facility] [Provider Group] - Follow up as needed
== END 2018-12-03 11:45 | disposition home or self-care (01) ==
LOC: ER 11:15
DX: S83.91XA Sprain of unspecified site of right knee, initial encounter (principal); M25.561 Pain in right knee; X58.XXXA Exposure to other specified factors, initial encounter; F17.200 Nicotine dependence, unspecified, uncomplicated
CPT/HCPCS: 99283

== ENCOUNTER 2019-02-06 14:54 | Emergency (ER) | payer SELFPAY ==
[2019-02-06 14:59] VITALS: BP 131/73
--- NOTE | 2019-02-06 15:27 | ER Document Report ---
ED Medical Screen (RME) - General Chief Complaint: Abdominal Pain Stated Complaint: ABDOMINAL CRAMPING Time Seen by Provider: 02/06/19 15:23 Mode of Arrival: Ambulatory Information source: Patient Notes: 23-year-old female presented to ED for complaint of pelvic pain cramping nausea and diarrhea for 5 days patient radiates to left back and flank area no history of kidney stones. Patient has a IUD has not had a menstrual cycle for over a year. She states she does have urinary urgency and frequency states she has a vaginal discharge that can have cloudy pink so she does not know if she has blood in the urine. States she has burning in the vaginal area after she urinates. She only has one sexual partner that she has been active with recently and she has had a history of PID with this partner and she thinks she was both gonorrhea and chlamydia. States she smokes marijuana denies smoking cigarettes or using any alcohol. Patient is alert oriented respirations regular and unlabored speaking in full sentences. I have greeted and performed a rapid initial assessment of this patient. A comprehensive ED assessment and evaluation of the patient, analysis of test results and completion of medical decision making process will be conducted by an additional ED providers. TRAVEL OUTSIDE OF THE [place] IN LAST 30 DAYS: No - Related Data Allergies/Adverse Reactions: No Known Allergies Allergy (Verified 02/06/19 14:55) Past Medical History Neurological Medical History: Reports: Hx Migraine Renal/ Medical History: Reports: Hx Pelvic Inflammatory Disease. Denies: Hx Peritoneal Dialysis Psychiatric Medical History: Reports: Hx Anxiety, Hx Depression, Hx Post Traumatic Stress Disorder Past Surgical History: Reports: Hx Cholecystectomy, Hx Oral Surgery - wisdom teeth, Hx Orthopedic Surgery - Right foot - Immunizations Immunizations up to date: Yes Hx Diphtheria, Pertussis, Tetanus Vaccination: Yes Physical Exam - Vital signs Vitals: Temp Pulse Resp BP Pulse Ox 98.7 F 92 16 131/73 H 99 02/06/19 14:57 02/06/19 14:57 02/06/19 14:57 02/06/19 14:57 02/06/19 14:57 Course - Vital Signs Vital signs: Temp Pulse Resp BP Pulse Ox 98.7 F 92 16 131/73 H 99 02/06/19 14:57 02/06/19 14:57 02/06/19 14:57 02/06/19 14:57 02/06/19 14:57
[2019-02-06 16:02] LABS: ABSOLUTE BASOPHILS # (AUTO) 0.1 10^3/uL (0.0-0.2); ABSOLUTE EOSINOPHILS # (AUTO) 0.1 10^3/uL (0.0-0.6); ABSOLUTE LYMPHOCYTES (AUTO) 2.8 10^3/uL (0.5-4.7); ABSOLUTE MONOCYTES (AUTO) 0.5 10^3/uL (0.1-1.4); ABSOLUTE NEUT (AUTO) 5.4 10^3/uL (1.7-8.2); BASOPHILS % (AUTO) 0.8 % (0-2); EOSINOPHILS % (AUTO) 1.5 % (0-6); HEMATOCRIT 42.5 % (36.0-47.0); HEMOGLOBIN 14.8 g/dL (12.0-15.5); LYMPHOCYTES % (AUTO) 31.3 % (13-45); MEAN CORPUSCULAR HEMOGLOBIN 31.4 pg (27.0-33.4); MEAN CORPUSCULAR HGB CONC 34.7 g/dL (32.0-36.0); MEAN CORPUSCULAR VOLUME 90 fl (80-97); MONOCYTES % (AUTO) 5.7 % (3-13); PLATELET COUNT 302 10^3/uL (150-450); RED BLOOD COUNT 4.71 10^6/uL (3.72-5.28); RED CELL DISTRIBUTION WIDTH 12.2 % (11.5-14.0); SEGMENTED NEUTROPHILS % (AUTO) 60.7 % (42-78); TOTAL CELLS COUNTED % (AUTO) 100 %; WHITE BLOOD COUNT 8.8 10^3/uL (4.0-10.5)
[2019-02-06 16:21] LABS: APPEARANCE,URINE SLIGHTLY-CLOUDY; BILIRUBIN,URINE NEGATIVE (NEGATIVE); CALCIUM OXALATE CRYSTALS,URINE RARE /HPF; COLOR,URINE YELLOW; GLUCOSE, URINE NEGATIVE (NEGATIVE); KETONES,URINE NEGATIVE (NEGATIVE); LEUKOCYTE ESTERASE,URINE SMALL (NEGATIVE); NITRITE,URINE NEGATIVE (NEGATIVE); PROTEIN,URINE NEGATIVE (NEGATIVE); URINE SPECIFIC GRAVITY 1.026
[2019-02-06 16:22] LABS: ALBUMIN 4.3 g/dL (3.5-5.0); ALKALINE PHOSPHATASE 80 U/L (38-126); ANION GAP 8 (5-19); ASPARTATE AMINO TRANSFERASE 25 U/L (14-36); BILIRUBIN,DIRECT 0.1 mg/dL (0.0-0.4); BILIRUBIN,TOTAL 0.6 mg/dL (0.2-1.3); BLOOD UREA NITROGEN 9 mg/dL (7-20); CALCIUM 9.3 mg/dL (8.4-10.2); CARBON DIOXIDE 27 mmol/L (22-30); CHLORIDE 105 mmol/L (98-107); GLUCOSE 95 mg/dL (75-110); POTASSIUM 4.1 mmol/L (3.6-5.0); TOTAL PROTEIN 6.8 g/dL (6.3-8.2)
== END 2019-02-06 18:40 | disposition left against medical advice (07) ==
LOC: ER 14:54
DX: R10.2 Pelvic and perineal pain (principal); R19.7 Diarrhea, unspecified; R11.0 Nausea; Z97.5 Presence of (intrauterine) contraceptive device; Z90.49 Acquired absence of other specified parts of digestive tract
CPT/HCPCS: 36415; 80053; 81001; 84703; 85025; 99281

== ENCOUNTER 2019-02-07 09:30 | Emergency (ER) | payer SELFPAY ==
[2019-02-07 09:38] VITALS: BP 135/98
[2019-02-07] MEDS ORDERED: ACETAMINOPHEN 325 MG TABLET PO ONE (11:04)
--- NOTE | 2019-02-07 11:06 | ER Document Report ---
ED General - General Chief Complaint: Vaginal Bleeding Stated Complaint: ABDOMINAL CRAMPING TRAVEL OUTSIDE OF THE [place] IN LAST 30 DAYS: No - HPI Patient complains to provider of: Lower abd pain Onset: Last week Onset/Duration: Gradual Quality of pain: Achy Severity: Moderate Context: 23 year old using IUD for contraception presents with lower abd pain and vaginal pain/ spotting for several days. Reminds her of PID back at the start of this year. No fever or chills. Nausea at times without vomiting. No chest pain and no sob. Exacerbated by: Denies Relieved by: Denies - Related Data Allergies/Adverse Reactions: No Known Allergies Allergy (Verified 02/07/19 09:34) Past Medical History - General Information source: Patient Last Menstrual Period: > yr ago IYD - Social History Smoking Status: Current Every Day Smoker Chew tobacco use (# tins/day): No Frequency of alcohol use: None Drug Abuse: Prescription drugs Family History: Reviewed & Not Pertinent, DM, Other - Gallbladder disease Patient has suicidal ideation: No Patient has homicidal ideation: No Neurological Medical History: Reports: Hx Migraine Renal/ Medical History: Reports: Hx Pelvic Inflammatory Disease. Denies: Hx Peritoneal Dialysis Psychiatric Medical History: Reports: Hx Anxiety, Hx Depression, Hx Post Traumatic Stress Disorder Past Surgical History: Reports: Hx Cholecystectomy, Hx Oral Surgery - wisdom teeth, Hx Orthopedic Surgery - Right foot - Immunizations Immunizations up to date: Yes Hx Diphtheria, Pertussis, Tetanus Vaccination: Yes Review of Systems - Review of Systems Constitutional: No symptoms reported EENT: No symptoms reported Cardiovascular: No symptoms reported Respiratory: No symptoms reported Gastrointestinal: See HPI Genitourinary: No symptoms reported Female Genitourinary: No symptoms reported Musculoskeletal: No symptoms reported Skin: No symptoms reported Hematologic/Lymphatic: No symptoms reported Neurological/Psychological: No symptoms reported Physical Exam - Vital signs Vitals: Temp Resp BP 98.1 F 16 135/98 H 02/07/19 09:37 02/07/19 09:37 02/07/19 09:37 Interpretation: Normal - General General appearance: Appears well, Alert - HEENT Head: Normocephalic, Atraumatic Eyes: Normal Pupils: PERRL - Respiratory Respiratory status: No respiratory distress Chest status: Nontender Breath sounds: Normal Chest palpation: Normal - Cardiovascular Rhythm: Regular Heart sounds: Normal auscultation Murmur: No - Abdominal Inspection: Normal Distension: No distension Bowel sounds: Normal Tenderness: Nontender Organomegaly: No organomegaly - Genitourinary External exam: Normal Speculum exam: Cervix closed Vaginal bleeding: Mild Bimanuel exam: Cervical motion tender - Back Back: Normal, Nontender - Extremities General upper extremity: Normal inspection, Nontender, Normal color, Normal ROM, Normal temperature General lower extremity: Normal inspection, Nontender, Normal color, Normal ROM, Normal temperature, Normal weight bearing. No: Jc's sign - Neurological Neuro grossly intact: Yes Cognition: Normal Orientation: AAOx4 Marv Coma Scale Eye Opening: Spontaneous Marv Coma Scale Verbal: Oriented Marv Coma Scale Motor: Obeys Commands Marv Coma Scale Total: 15 Speech: Normal Motor strength normal: LUE, RUE, LLE, RLE Sensory: Normal - Psychological Associated symptoms: Normal affect, Normal mood - Skin Skin Temperature: Warm Skin Moisture: Dry Skin Color: Normal Course - Re-evaluation Re-evalutation: 02/07/19 12:04 MDM 23 year old with concern for PID and history of same. Will treat for cervicitis as her exam today is consistent with that and uti. She is nontoxic here and reasonable for follow up. - Vital Signs Vital signs: Temp Pulse Resp BP Pulse Ox 98.1 F 16 135/98 H 02/07/19 09:37 02/07/19 09:37 02/07/19 09:37 - Laboratory Result Diagrams: 02/07/19 10:44 02/07/19 10:44 Laboratory results interpreted by me: 02/07/19 10:44 Urine Blood MODERATE H Ur Leukocyte Esterase MODERATE H Discharge - Discharge Clinical Impression: Cervicitis Condition: Good Disposition: HOME, SELF-CARE Instructions: Cervicitis (REPLACED BY [facility]) Additional Instructions: No sex for 7 days. Have partners checked regarding any possibility of std. Take the antibiotic as directed and tylenol for pain. Prescriptions: Cephalexin Monohydrate [Keflex 500 mg Capsule] 500 mg PO TID #30 capsule
[2019-02-07 11:13] LABS: ABSOLUTE EOSINOPHILS # (AUTO) 0.2 10^3/uL (0.0-0.6); ABSOLUTE LYMPHOCYTES (AUTO) 2.7 10^3/uL (0.5-4.7); ABSOLUTE MONOCYTES (AUTO) 0.4 10^3/uL (0.1-1.4); ABSOLUTE NEUT (AUTO) 5.4 10^3/uL (1.7-8.2); BASOPHILS % (AUTO) 0.6 % (0-2); EOSINOPHILS % (AUTO) 1.9 % (0-6); HEMATOCRIT 41.9 % (36.0-47.0); HEMOGLOBIN 14.6 g/dL (12.0-15.5); LYMPHOCYTES % (AUTO) 31.1 % (13-45); MEAN CORPUSCULAR HEMOGLOBIN 31.3 pg (27.0-33.4); MEAN CORPUSCULAR HGB CONC 34.9 g/dL (32.0-36.0); MEAN CORPUSCULAR VOLUME 90 fl (80-97); MONOCYTES % (AUTO) 4.5 % (3-13); PLATELET COUNT 295 10^3/uL (150-450); RED BLOOD COUNT 4.67 10^6/uL (3.72-5.28); RED CELL DISTRIBUTION WIDTH 12.2 % (11.5-14.0); SEGMENTED NEUTROPHILS % (AUTO) 61.9 % (42-78); TOTAL CELLS COUNTED % (AUTO) 100 %; WHITE BLOOD COUNT 8.6 10^3/uL (4.0-10.5)
[2019-02-07 11:23] LABS: APPEARANCE,URINE CLEAR; BILIRUBIN,URINE NEGATIVE (NEGATIVE); COLOR,URINE YELLOW; GLUCOSE, URINE NEGATIVE (NEGATIVE); KETONES,URINE NEGATIVE (NEGATIVE); LEUKOCYTE ESTERASE,URINE MODERATE (NEGATIVE); NITRITE,URINE NEGATIVE (NEGATIVE); PROTEIN,URINE NEGATIVE (NEGATIVE); URINE SPECIFIC GRAVITY 1.021; UROBILINOGEN,URINE NEGATIVE mg/dL (<2.0)
[2019-02-07 11:30] LABS: ALBUMIN 4.7 g/dL (3.5-5.0); ALKALINE PHOSPHATASE 78 U/L (38-126); ANION GAP 11 (5-19); ASPARTATE AMINO TRANSFERASE 27 U/L (14-36); BILIRUBIN,DIRECT 0.1 mg/dL (0.0-0.4); BILIRUBIN,TOTAL 0.9 mg/dL (0.2-1.3); BLOOD UREA NITROGEN 7 mg/dL (7-20); CALCIUM 9.8 mg/dL (8.4-10.2); CARBON DIOXIDE 25 mmol/L (22-30); CHLORIDE 105 mmol/L (98-107); GLUCOSE 97 mg/dL (75-110); POTASSIUM 4.1 mmol/L (3.6-5.0); TOTAL PROTEIN 7.5 g/dL (6.3-8.2)
[2019-02-07] MEDS ORDERED: CEFTRIAXONE INJ 250 MG VIAL IM ONE (11:42)
[2019-02-07] MEDS ORDERED: AZITHROMYCIN 1 GM SUSP PACKET PO ONE (11:42)
[2019-02-07] MEDS ORDERED: CEFTRIAXONE INJ 250 MG VIAL IV ONE (12:43)
[2019-02-07 13:42] LABS: CHLAM PCR NOT DETECTED (NOT DETECT)
== END 2019-02-07 13:20 | disposition home or self-care (01) ==
LOC: ER 09:30
DX: N72 Inflammatory disease of cervix uteri (principal); R10.2 Pelvic and perineal pain; N93.9 Abnormal uterine and vaginal bleeding, unspecified; F17.200 Nicotine dependence, unspecified, uncomplicated
CPT/HCPCS: 36415; 83690; 85025; 81025; 80053; 81001; 87491; 87591; Q0144; J0696; 96365; 99284

== ENCOUNTER 2019-02-26 12:40 | Emergency (ER) | payer SELFPAY ==
[2019-02-26] MEDS ORDERED: NORMAL SALINE 1000 ML 1,000 ML IV ONE (13:20)
--- NOTE | 2019-02-26 13:22 | ER Document Report ---
ED Medical Screen (RME) - General Chief Complaint: Vaginal Discharge Stated Complaint: DIZZINESS Time Seen by Provider: 02/26/19 13:14 Mode of Arrival: Ambulatory Information source: Patient Notes: Patient presents stating that she got up this morning around 10 AM after sleeping to go to the bathroom. Patient states that she got dizzy and then fainted. Patient does complain of lower pelvic cramping. Patient states she was recently treated for gonorrhea as well as bacterial vaginosis. Patient states that her doctor advised her that she started feeling where she should come to the ER for recheck from her PID. I have greeted and performed a rapid initial assessment of this patient. A comprehensive ED assessment and evaluation of the patient, analysis of test results and completion of the medical decision making process will be conducted by additional ED providers. TRAVEL OUTSIDE OF THE [place] IN LAST 30 DAYS: No - Related Data Allergies/Adverse Reactions: No Known Allergies Allergy (Verified 02/26/19 13:11) Past Medical History - Social History Drug Abuse: Marijuana Neurological Medical History: Reports: Hx Migraine Renal/ Medical History: Reports: Hx Pelvic Inflammatory Disease. Denies: Hx Peritoneal Dialysis Psychiatric Medical History: Reports: Hx Anxiety, Hx Depression, Hx Post Traumatic Stress Disorder Past Surgical History: Reports: Hx Cholecystectomy, Hx Oral Surgery - wisdom teeth, Hx Orthopedic Surgery - Right foot - Immunizations Immunizations up to date: Yes Hx Diphtheria, Pertussis, Tetanus Vaccination: Yes Physical Exam - Vital signs Vitals: Temp Pulse Resp BP Pulse Ox 98.3 F 78 16 139/94 H 100 02/26/19 12:44 02/26/19 12:44 02/26/19 12:44 02/26/19 12:44 02/26/19 12:44 - General General appearance: Appears well, Alert Notes: Lower pelvic tenderness Course - Vital Signs Vital signs: Temp Pulse Resp BP Pulse Ox 98.3 F 78 16 139/94 H 100 02/26/19 12:44 02/26/19 12:44 02/26/19 12:44 02/26/19 12:44 02/26/19 12:44
--- NOTE | 2019-02-26 14:32 | RADIOLOGY REPORT (SQ) ---
EXAM DESCRIPTION: U/S NON OB PEL TV W/DOPPLER COMPLETED DATE/TIME: 02/26/2019 2:06 pm REASON FOR STUDY: pelvic pain, hx gonorrhrea COMPARISON: Pelvic ultrasound 12/24/2017 TECHNIQUE: Dynamic and static grayscale images acquired of the pelvis via transvaginal approach and recorded on PACS. Additional selected color Doppler and spectral images recorded. LIMITATIONS: None. FINDINGS: UTERUS: Contour normal. No mass. Uterus is 9 x 5 x 4 cm in size ENDOMETRIAL STRIPE: No focal or generalized thickening. No masses. Endometrial stripe 7 to 8 mm thic kness. IUD in good positioning. CERVIX: No nabothian cysts. Cervix closed, 2.8 cm in length. RIGHT OVARY AND DOPPLER: Normal size, 2.2 x 3.5 x 3.3 cm in size. No worrisome masses. Normal arteria l vascular flow without evidence for torsion. LEFT OVARY AND DOPPLER: Normal size, 3.4 x 2.3 x 2 cm in size. No worrisome masses. Normal arterial v ascular flow without evidence for torsion. FREE FLUID: None noted. OTHER: No other significant finding. IMPRESSION: NORMAL TRANSVAGINAL PELVIC ULTRASOUND. TECHNICAL DOCUMENTATION: JOB ID: [id number] [employer]- All Rights Reserved Rev-10/15 Reading location - IP/workstation name: [email or web address]
[2019-02-26 14:46] LABS: ABSOLUTE EOSINOPHILS # (AUTO) 0.2 10^3/uL (0.0-0.6); ABSOLUTE LYMPHOCYTES (AUTO) 2.9 10^3/uL (0.5-4.7); ABSOLUTE MONOCYTES (AUTO) 0.3 10^3/uL (0.1-1.4); ABSOLUTE NEUT (AUTO) 4.1 10^3/uL (1.7-8.2); BASOPHILS % (AUTO) 0.6 % (0-2); EOSINOPHILS % (AUTO) 2.2 % (0-6); HEMATOCRIT 41.4 % (36.0-47.0); HEMOGLOBIN 14.1 g/dL (12.0-15.5); LYMPHOCYTES % (AUTO) 38.4 % (13-45); MEAN CORPUSCULAR HEMOGLOBIN 31.2 pg (27.0-33.4); MEAN CORPUSCULAR HGB CONC 34.2 g/dL (32.0-36.0); MEAN CORPUSCULAR VOLUME 91 fl (80-97); MONOCYTES % (AUTO) 4.5 % (3-13); PLATELET COUNT 260 10^3/uL (150-450); RED BLOOD COUNT 4.54 10^6/uL (3.72-5.28); RED CELL DISTRIBUTION WIDTH 12.4 % (11.5-14.0); SEGMENTED NEUTROPHILS % (AUTO) 54.3 % (42-78); TOTAL CELLS COUNTED % (AUTO) 100 %; WHITE BLOOD COUNT 7.6 10^3/uL (4.0-10.5)
[2019-02-26 15:01] LABS: ALBUMIN 4.1 g/dL (3.5-5.0); ALKALINE PHOSPHATASE 68 U/L (38-126); ANION GAP 9 (5-19); ASPARTATE AMINO TRANSFERASE 23 U/L (14-36); BILIRUBIN,DIRECT 0.1 mg/dL (0.0-0.4); BILIRUBIN,TOTAL 0.4 mg/dL (0.2-1.3); BLOOD UREA NITROGEN 6 mg/dL (7-20); CALCIUM 9.4 mg/dL (8.4-10.2); CARBON DIOXIDE 25 mmol/L (22-30); CHLORIDE 105 mmol/L (98-107); GLUCOSE 82 mg/dL (75-110); POTASSIUM 4.2 mmol/L (3.6-5.0); TOTAL PROTEIN 6.6 g/dL (6.3-8.2)
[2019-02-26 15:49] LABS: APPEARANCE,URINE CLEAR; BILIRUBIN,URINE NEGATIVE (NEGATIVE); COLOR,URINE YELLOW; GLUCOSE, URINE NEGATIVE (NEGATIVE); KETONES,URINE NEGATIVE (NEGATIVE); LEUKOCYTE ESTERASE,URINE NEGATIVE (NEGATIVE); NITRITE,URINE NEGATIVE (NEGATIVE); PROTEIN,URINE NEGATIVE (NEGATIVE); URINE SPECIFIC GRAVITY 1.018; UROBILINOGEN,URINE NEGATIVE mg/dL (<2.0)
--- NOTE | 2019-02-26 16:58 | ER Document Report ---
ED GI/ - General Chief Complaint: Vaginal Discharge Stated Complaint: DIZZINESS Time Seen by Provider: 02/26/19 13:14 Mode of Arrival: Ambulatory Notes: Patient presents stating that she got up this morning around 10 AM after sleeping to go to the bathroom. Patient states that she got dizzy and then fainted. Patient does complain of lower pelvic cramping. Patient states she was recently treated for gonorrhea as well as bacterial vaginosis. Patient states that her doctor advised her that she started feeling where she should come to the ER for recheck from her PID. My HPI: Patient is a 23-year-old female presents to the emergency department for vaginal discharge. Patient also has lower pelvic pain. Patient states she was recently treated for urinary tract infection with Keflex. States she was tested for gonorrhea and chlamydia and was inevitably called because her testing came back positive. States she received a gonorrhea and chlamydia treatments but then had sexual intercourse with the same person. States she was not told she was not supposed to have sexual intercourse. States she then re-presented with continued vaginal discharge and inevitably got re-treated for gonorrhea and chlamydia 2 days ago at the [facility]. Patient voices she has not had sexual intercourse since being re-treated for gonorrhea and chlamydia. Patient voices she has been using [id number] Monistat because she feels as though she may have a yeast infection. States her lower pelvic pain had become severe which is why she represents to the emergency department. States she does have a history of ovarian cysts and has had pelvic inflammatory disease in the past. Patient's denying any full loss of consciousness. States she just felt lightheaded and dizzy based on the pain. Denies any head pain, nausea, vomiting, neck pain, back pain. Patient denies any numbness or tingling in any extremity. TRAVEL OUTSIDE OF THE [place] IN LAST 30 DAYS: No - Related Data Allergies/Adverse Reactions: No Known Allergies Allergy (Verified 02/26/19 13:11) Past Medical History - General Information source: Patient - Social History Smoking Status: Current Every Day Smoker Drug Abuse: Marijuana Family History: Reviewed & Not Pertinent, DM, Other - Gallbladder disease Patient has suicidal ideation: No Patient has homicidal ideation: No Neurological Medical History: Reports: Hx Migraine Renal/ Medical History: Reports: Hx Pelvic Inflammatory Disease. Denies: Hx Peritoneal Dialysis Psychiatric Medical History: Reports: Hx Anxiety, Hx Depression, Hx Post Traumatic Stress Disorder Past Surgical History: Reports: Hx Cholecystectomy, Hx Oral Surgery - wisdom teeth, Hx Orthopedic Surgery - Right foot - Immunizations Immunizations up to date: Yes Hx Diphtheria, Pertussis, Tetanus Vaccination: Yes Review of Systems - Review of Systems Constitutional: denies: Fever EENT: No symptoms reported Cardiovascular: No symptoms reported Respiratory: No symptoms reported Gastrointestinal: See HPI Genitourinary: See HPI Female Genitourinary: See HPI Musculoskeletal: No symptoms reported Skin: No symptoms reported Hematologic/Lymphatic: No symptoms reported Neurological/Psychological: No symptoms reported Physical Exam - Vital signs Vitals: Temp Pulse Resp BP Pulse Ox 98.3 F 78 16 139/94 H 100 02/26/19 12:44 02/26/19 12:44 02/26/19 12:44 02/26/19 12:44 02/26/19 12:44 - Notes Notes: GENERAL: Alert, interacts well. No acute distress. HEAD: Normocephalic, atraumatic. EYES: Pupils equal, round, and reactive to light. Extraocular movements intact. ENT: Oral mucosa moist, tongue midline. NECK: Full range of motion. Supple. Trachea midline. LUNGS: Clear to auscultation bilaterally, no wheezes, rales, or rhonchi. No respiratory distress. HEART: Regular rate and rhythm. No murmur ABDOMEN: Soft, suprapubic pain noted, otherwise abdominal exam unremarkable. Non-distended. Bowel sounds present in all 4 quadrants. EXTREMITIES: Moves all 4 extremities spontaneously. No edema, normal radial and dorsalis pedis pulses bilaterally. No cyanosis. BACK: no cervical, thoracic, lumbar midline tenderness. No saddle anesthesia, normal distal neurovascular exam. No CVA tenderness noted bilaterally NEUROLOGICAL: Alert and oriented x3. Normal speech. cranial nerves II through XII grossly intact PSYCH: Normal affect, normal mood. SKIN: Warm, dry, normal turgor. No rashes or lesions noted. Pelvic: [employer] PCT, white discharge noted in the cul-de-sac, positive cervical motion tenderness noted. No adnexal tenderness noted bilaterally. Course - Re-evaluation Re-evalutation: 02/26/19 18:13 Laboratory 02/26/19 02/26/19 02/26/19 14:22 14:22 14:22 WBC 7.6 RBC 4.54 Hgb 14.1 Hct 41.4 MCV 91 MCH 31.2 MCHC 34.2 RDW 12.4 Plt Count 260 Lymph % (Auto) 38.4 [place] % (Auto) 4.5 Eos % (Auto) 2.2 Baso % (Auto) 0.6 Absolute Neuts (auto) 4.1 Absolute Lymphs (auto) 2.9 Absolute Monos (auto) 0.3 Absolute Eos (auto) 0.2 Absolute Basos (auto) 0.0 Seg Neutrophils % 54.3 Sodium 139.4 Potassium 4.2 Chloride 105 Carbon Dioxide 25 Anion Gap 9 BUN 6 L Creatinine 0.67 Est GFR ( Amer) > 60 Est GFR (MDRD) Non-Af > 60 Glucose 82 Calcium 9.4 Total Bilirubin 0.4 Direct Bilirubin 0.1 Neonat Total Bilirubin Not Reportable Neonat Direct Bilirubin Not Reportable Neonat Indirect Bili Not Reportable AST 23 ALT 22 Alkaline Phosphatase 68 Total Protein 6.6 Albumin 4.1 Serum HCG, Qual NEGATIVE Urine Color Urine Appearance Urine pH Ur Specific [place] Urine Protein Urine Glucose (UA) Urine Ketones Urine Blood Urine Nitrite Urine Bilirubin Urine Urobilinogen Ur Leukocyte Esterase Urine WBC (Auto) Urine RBC (Auto) Squamous Epi Cells Auto Urine Mucus (Auto) Urine Ascorbic Acid Bacteria (Wet Prep) Trichomonas (Wet Prep) Vaginal WBC Vaginal RBC Vaginal Yeast 02/26/19 02/26/19 15:19 16:45 WBC RBC Hgb Hct MCV MCH MCHC RDW Plt Count Lymph % (Auto) [place] % (Auto) Eos % (Auto) Baso % (Auto) Absolute Neuts (auto) Absolute Lymphs (auto) Absolute Monos (auto) Absolute Eos (auto) Absolute Basos (auto) Seg Neutrophils % Sodium Potassium Chloride Carbon Dioxide Anion Gap BUN Creatinine Est GFR ( Amer) Est GFR (MDRD) Non-Af Glucose Calcium Total Bilirubin Direct Bilirubin Neonat Total Bilirubin Neonat Direct Bilirubin Neonat Indirect Bili AST ALT Alkaline Phosphatase Total Protein Albumin Serum HCG, Qual Urine Color YELLOW Urine Appearance CLEAR Urine pH 7.0 Ur Specific [place] 1.018 Urine Protein NEGATIVE Urine Glucose (UA) NEGATIVE Urine Ketones NEGATIVE Urine Blood SMALL H Urine Nitrite NEGATIVE Urine Bilirubin NEGATIVE Urine Urobilinogen NEGATIVE Ur Leukocyte Esterase NEGATIVE Urine WBC (Auto) 1 Urine RBC (Auto) 3 Squamous Epi Cells Auto <1 Urine Mucus (Auto) RARE Urine Ascorbic Acid NEGATIVE Bacteria (Wet Prep) 3+ BACTERIA SEEN Trichomonas (Wet Prep) NO TRICHOMONAS SEEN Vaginal WBC FEW WBCS SEEN Vaginal RBC FEW RBCS SEEN Vaginal Yeast NO YEAST SEEN Transvaginal US 02/26/19 13:20 IMPRESSION: NORMAL TRANSVAGINAL PELVIC ULTRASOUND. Patient's physical exam does reveal cervical motion tenderness, positive for pelvic inflammatory disease. Patient's wet mount shows 3+ bacteria. Discussed with patient use of metronidazole gel suppositories and doxycycline. Patient voices she was treated with azithromycin and ceftriaxone on Wednesday for gonorrhea and chlamydia. Her GC testing is still pending. She is wishing to decline repeat treating at this time. At this time will discharge with return precautions and follow-up recommendations. Verbal discharge instructions given a the bedside and opportunity for questions given. Medication warnings reviewed. Patient is in agreement with this plan and has verbalized understanding of return precautions and the need for primary care follow-up in the next 24-72 hours. This medical record was dictated with voice recognizing software. There may be grammatical, syntax errors that are unintended. - Vital Signs Vital signs: Temp Pulse Resp BP Pulse Ox 98.3 F 78 16 139/94 H 100 02/26/19 12:44 02/26/19 12:44 02/26/19 12:44 02/26/19 12:44 02/26/19 12:44 - Laboratory Result Diagrams: 02/26/19 14:22 02/26/19 14:22 Laboratory results interpreted by me: 02/26/19 02/26/19 14:22 15:19 BUN 6 L Urine Blood SMALL H Discharge - Discharge Clinical Impression: Pelvic inflammatory disease (PID), Bacterial vaginosis Condition: Stable Disposition: HOME, SELF-CARE Instructions: Pelvic Inflammatory Disease ([facility]), Vaginosis, Bacterial ([facility]) Additional Instructions: As we discussed you have been seen and treated in the emergency department for pelvic inflammatory disease and bacterial vaginosis. Please make sure you are taking your antibiotics as prescribed. Please also make sure you refrain from sexual activity until you finish all of the antibiotics. Please follow-up with the health district for continued testing. Return to the emergency department for any concerns. Prescriptions: Doxycycline Hyclate 100 mg PO BID 14 Days capsule Metronidazole [Nuvessa] 5 gm VG DAILY 7 Days gel.[id number].[email or web address] Forms: Return to Work Referrals: HEALTH DEPT,[facility] [NO LOCAL MD] - Follow up as needed
[2019-02-26 17:39] LABS: BACTERIA (WET MOUNT) 3+ BACTERIA SEEN; RBCS (WET MOUNT) FEW RBCS SEEN; T.VAGINALIS (WET MOUNT) NO TRICHOMONAS SEEN; WBCS (WET MOUNT) FEW WBCS SEEN; YEAST (WET MOUNT) NO YEAST SEEN
[2019-02-26 18:25] LABS: CHLAM PCR NOT DETECTED (NOT DETECT)
[2019-02-26 18:31] VITALS: BP 139/83
--- NOTE | 2019-02-27 00:52 | EKG REPORT ---
SEVERITY:- NORMAL ECG - SINUS RHYTHM : Confirmed by: Brody Hair 27-Feb-2019 00:51:34
== END 2019-02-26 18:20 | disposition home or self-care (01) ==
LOC: ER 12:40
DX: N73.9 Female pelvic inflammatory disease, unspecified (principal); N76.0 Acute vaginitis; B96.89 Other specified bacterial agents as the cause of diseases classified elsewhere; R42 Dizziness and giddiness; R10.2 Pelvic and perineal pain; F17.200 Nicotine dependence, unspecified, uncomplicated
CPT/HCPCS: 36415; 76830; 80053; 81001; 84703; 85025; 87210; 87491; 87591; 93005; 93010; 93976; 99284